=== PATIENT | male | born 1985 | race Caucasian/White ===

== ENCOUNTER 2018-05-26 08:27 | Emergency (ER) | payer SELFPAY ==
--- OUTSIDE RECORDS SUMMARY | 2018-05-26 08:29 | XMS REPORT | Clinical Summary ---
:1985 Author Organization [facility] Address [address] [place] [address] Phone Care Team Providers Name Role Phone Unavailable Primary Care Provider Unavailable Allergies No Known Allergies Current Medications No known medications Active Problems Not on file Social History Tobacco Use Types Packs/Day Years Used Date Current Every Day Smoker 0.5 Alcohol Use Drinks/Week oz/Week Comments Yes 15 Cans of beer 9.0 Sex Assigned at Date Recorded Not on file Last Filed Vital Signs Not on file Plan of Treatment Not on file Results Not on fileafter 05/25/2017
[2018-05-26] MEDS ORDERED: FLUORESCEIN SODIUM 0.6 MG/WRAP ONE (09:11)
[2018-05-26] MEDS ORDERED: TETRACAINE HCL 0.5% 2ML OPTH ONE (09:11)
[2018-05-26] MEDS ORDERED: TOBRAMYCIN SULF 0.3% OPTH OINT ONE (09:11)
--- NOTE | 2018-05-26 09:29 | EDPHYS ---
Physician Documentation [facility] Name: Lucio Lerma Jr Age: 32 yrs Sex: Male : 1985 Arrival Date: 05/26/2018 Time: 08:29 Bed 16 Private MD: None, None ED Physician Dennis Ramsey HPI: 05/26 08:50 This 32 yrs old Male presents to ER via Ambulatory with complaints of Eye cp Problem. 08:50 The patient is experiencing decreased vision, foreign body sensation, pain, redness, to cp the right eye. Onset: The symptoms/episode began/occurred today. Duration: the symptoms are continuous. Associated signs and symptoms: Pertinent negatives: None. Patient does not utilize any form of vision correction. Severity of symptoms: in the emergency department the symptoms are unchanged despite home interventions. Historical: - Allergies: 08:41 No Known Allergies; ss - Home Meds: 08:41 None [Active]; ss - PMHx: 08:41 None; ss - PSHx: 08:41 None; ss - Immunization history:: Adult Immunizations unknown. - Social history:: Smoking status: Patient/guardian denies using tobacco. - Ebola Screening: : Patient denies exposure to infectious person Patient denies travel to an Ebola-affected area in the 21 days before illness onset. ROS: 08:52 Constitutional: Negative for body aches, chills, fever, poor PO intake. cp 08:52 Eyes: Positive for discharge, foreign body sensation, pain, redness, of the right eye. cp 08:52 ENT: Negative for drainage from ear(s), ear pain, sore throat, difficulty swallowing, difficulty handling secretions. 08:52 Cardiovascular: Negative for chest pain, palpitations. 08:52 Respiratory: Negative for cough, shortness of breath, wheezing. 08:52 Abdomen/GI: Negative for abdominal pain, nausea, vomiting, and diarrhea. 08:52 : Negative for urinary symptoms. 08:52 Skin: Negative for cellulitis, rash. 08:52 Neuro: Negative for altered mental status, headache, weakness. 08:52 All other systems are negative. Exam: 08:55 Visual Acuity: I have reviewed the nursing documentation. cp 08:55 Head/Face: Normocephalic, atraumatic. cp 08:55 Constitutional: The patient appears in no acute distress, alert, awake, non-toxic, well developed, well nourished, uncomfortable. 08:55 Eyes: Periorbital structures: appear normal, Pupils: equal, round, and reactive to light and accomodation, Extraocular movements: intact throughout, Conjunctiva: injected, in the right eye, Corneas: abrasion, that is large, on the right, central, foreign body, is not appreciated, a fluorescein strip employed to appreciate the findings, Anterior chamber: normal, no hyphema, Lids and lashes: appear normal, bilaterally, Examination of the other eye reveals no obvious gross abnormality. 08:55 ENT: External ear(s): are unremarkable, Ear canal(s): are normal, clear, TM's: are normal, no evidence of bulging, no erythema, Nose: is normal, Mouth: Lips: moist, Oral mucosa: pink and intact, moist, Posterior pharynx: is normal, airway is patent, no erythema, no exudate, Voice: is normal. 08:55 Neck: ROM/movement: is normal, is supple, without pain, no range of motions limitations, no nuchal rigidity, Lymph nodes: no appreciated lymphadenopathy. 08:55 Chest/axilla: Inspection: normal, Palpation: is normal, no crepitus, no tenderness. 08:55 Cardiovascular: Rate: normal, Rhythm: regular. 08:55 Respiratory: the patient does not display signs of respiratory distress, Respirations: normal, no use of accessory muscles, no retractions, no splinting, no tachypnea, labored breathing, is not present, Breath sounds: are clear throughout, no decreased breath sounds, no stridor, no wheezing. 08:55 Abdomen/GI: Exam negative for discomfort, distension, guarding, Inspection: abdomen appears normal. 08:55 Skin: cellulitis, is not appreciated, no rash present. 08:55 Neuro: Orientation: to person, place \T\ time. Mentation: lucid, able to follow commands, Cerebellar function: is grossly normal, Motor: moves all fours, strength is normal, Sensation: no obvious gross deficits. Vital Signs: 08:41 BP 152 / 89; Pulse 67; Resp 16; Temp 97.7(TE); Pulse Ox 100% on R/A; Weight 113.4 kg; ss Height 6 ft. 4 in. (193.04 cm); Pain 2/10; 09:30 BP 142 / 81; Pulse 72; Resp 17; Pulse Ox 99% ; rb1 08:41 Body Mass Index 30.43 (113.40 kg, 193.04 cm) ss MDM: 08:46 Patient medically screened. cp 09:00 Differential diagnosis: Corneal abrasion of right eye. Corneal ulcer of right eye. cp Foreign body in right eye. Acute iritis of right eye. Acute glaucoma in right eye. Chemical conjunctivitis in right eye. Allergic conjunctivitis in right eye. Infectious conjunctivitis in right eye. 09:28 Data reviewed: vital signs, nurses notes, and as a result, I will discharge patient. cp 09:29 Counseling: I had a detailed discussion with the patient and/or guardian regarding: the cp historical points, exam findings, and any diagnostic results supporting the discharge/admit diagnosis, lab results, the need for outpatient follow up, an opthalmologist, to return to the emergency department if symptoms worsen or persist or if there are any questions or concerns that arise at home. 05/26 09:00 Order name: Visual Acuity; Complete Time: 09:34 cp 05/26 09:00 Order name: Eye Tray; Complete Time: 09:34 cp 05/26 09:00 Order name: Fluoresene Opth strip; Complete Time: 09:05 cp Administered Medications: 09:27 Not Given (Physician Discretion): ToBREx Drops (0.3 %) 2 drops Ophthalmic once cp 09:30 Drug: Gentamicin Drops 0.3 % 2 drops Route: Ophthalmic; Site: right eye; rb1 09:35 Follow up: Response: No adverse reaction; Medication administered at discharge. rb1 Disposition: 10:00 Chart complete. cp Disposition: 05/26/18 09:29 Discharged to Home. Impression: Injury of conjunctiva and corneal abrasion without foreign body, left eye. - Condition is Stable. - Discharge Instructions: Corneal Abrasion. - Prescriptions for Gentamicin 0.3 % Ophthalmic Drops - instill 1 drop by OPHTHALMIC route every 4 hours for 7 days; 1 bottle. - Medication Reconciliation Form, Thank You Letter, Antibiotic Education, Prescription Opioid Use form. - Follow up: Sallie Tsai MD; When: 1 - 2 days; Reason: Recheck today's complaints. - Problem is new. - Symptoms have improved. Addendum: 05/27/2018 10:35 Co-signature as Attending Physician, Dennis Ramsey MD I agree with the assessment and k dr plan of care. Signatures: Dennis Ramsey MD MD [facility] Drea Perez, TOMASA RN ss Benjamin Webber PA PA Winsome Lopes, RN RN rb1 Corrections: (The following items were deleted from the chart) 05/26 09:38 09:29 05/26/2018 09:29 Discharged to Home. Impression: Injury of conjunctiva and rb1 corneal abrasion without foreign body, left eye. Condition is Stable. Forms are Medication Reconciliation Form, Thank You Letter, Antibiotic Education, Prescription Opioid Use. Follow up: Sallie Tsai; When: 1 - 2 days; Reason: Recheck today's complaints. Problem is new. Symptoms have improved. cp
--- NOTE | 2018-05-26 09:29 | ER ---
Nurse's Notes [facility] Name: Lucio Lerma Jr Age: 32 yrs Sex: Male : 1985 Arrival Date: 05/26/2018 Time: 08:29 Bed 16 Private MD: None, None Diagnosis: Injury of conjunctiva and corneal abrasion without foreign body, left eye Presentation: 05/26 08:38 Presenting complaint: Patient states: stye to R upper lid that began 12 hours ago. Pt ss also reports nasal congestion and drainage. Transition of care: patient was not received from another setting of care. Onset of symptoms was May 25, 2018. Risk Assessment: Do you want to hurt yourself or someone else? Patient reports no desire to harm self or others. Initial Sepsis Screen: Does the patient meet any 2 criteria? No. Patient's initial sepsis screen is negative. Does the patient have a suspected source of infection? No. Patient's initial sepsis screen is negative. Care prior to arrival: None. 08:38 Method Of Arrival: Ambulatory ss 08:38 Acuity: SVITLANA 5 ss Historical: - Allergies: 08:41 No Known Allergies; ss - Home Meds: 08:41 None [Active]; ss - PMHx: 08:41 None; ss - PSHx: 08:41 None; ss - Immunization history:: Adult Immunizations unknown. - Social history:: Smoking status: Patient/guardian denies using tobacco. - Ebola Screening: : Patient denies exposure to infectious person Patient denies travel to an Ebola-affected area in the 21 days before illness onset. Screenin:37 Abuse screen: Denies threats or abuse. Nutritional screening: No deficits noted. rb1 Tuberculosis screening: No symptoms or risk factors identified. Fall Risk None identified. Assessment: 08:37 General: Appears in no apparent distress. comfortable, Behavior is calm, cooperative, rb1 Denies fever. Pain: Complains of pain in right eye Pain currently is 4 out of 10 on a pain scale. Pain began 1 day ago. Neuro: Level of Consciousness is awake, alert, obeys commands, Oriented to person, place, time, situation. Cardiovascular: Capillary refill < 3 seconds is brisk in bilateral fingers. Respiratory: Airway is patent Respiratory effort is even, unlabored, Respiratory pattern is regular, symmetrical. GI: No signs and/or symptoms were reported involving the gastrointestinal system. : No signs and/or symptoms were reported regarding the genitourinary system. EENT: Eyes swelling in right eye. Derm: Skin is dry, Skin is normal, Skin temperature is warm. 09:30 Reassessment: Patient appears in no apparent distress at this time. No changes from rb1 previously documented assessment. Family at bedside. Vital Signs: 08:41 BP 152 / 89; Pulse 67; Resp 16; Temp 97.7(TE); Pulse Ox 100% on R/A; Weight 113.4 kg; ss Height 6 ft. 4 in. (193.04 cm); Pain 2/10; 09:30 BP 142 / 81; Pulse 72; Resp 17; Pulse Ox 99% ; rb1 08:41 Body Mass Index 30.43 (113.40 kg, 193.04 cm) ED Course: 08:29 Patient arrived in ED. sb2 08:30 None, None is Private Physician. sb2 08:37 Patient has correct armband on for positive identification. Bed in low position. Call rb1 light in reach. Side rails up X 1. Pulse ox on. NIBP on. 08:41 Triage completed. ss 08:41 Arm band placed on right wrist. ss 08:43 Winsome Mesa, TOMASA is Primary Nurse. rb1 08:43 Benjamin Webber PA is PHCP. cp 08:43 Dennis Ramsey MD is Attending Physician. cp 09:28 Sallie Tsai MD is Referral Physician. cp 09:37 No provider procedures requiring assistance completed. Patient did not have IV access rb1 during this emergency room visit. Administered Medications: 09:27 Not Given (Physician Discretion): ToBREx Drops (0.3 %) 2 drops Ophthalmic once cp 09:30 Drug: Gentamicin Drops 0.3 % 2 drops Route: Ophthalmic; Site: right eye; rb1 09:35 Follow up: Response: No adverse reaction; Medication administered at discharge. rb1 Outcome: 09:29 Discharge ordered by . cp 09:37 Discharged to home ambulatory, with family. rb1 09:37 Condition: stable 09:37 Discharge instructions given to patient, Instructed on discharge instructions, follow up and referral plans. medication usage, Demonstrated understanding of instructions, follow-up care, medications, Prescriptions given X 1. 09:38 Patient left the ED. rb1 Signatures: Drea Perez RN RN Benjamin Webber PA PA cp Barber, Rebecca, RN RN rb1 Karlie Pinon sb2
[2018-05-26] MEDS ORDERED: GENTAMICIN 0.3% OPTH DROP 5ML ONE (09:30)
== END 2018-05-26 09:38 | disposition home or self-care (01) ==
LOC: ER 08:27
DX: S05.01XA Injury of conjunctiva and corneal abrasion without foreign body, right eye, initial encounter (principal); X58.XXXA Exposure to other specified factors, initial encounter; Y93.9 Activity, unspecified; Y92.9 Unspecified place or not applicable
CPT/HCPCS: 99283

== ENCOUNTER 2018-07-10 07:48 | Emergency (ER) | payer SELFPAY ==
--- OUTSIDE RECORDS SUMMARY | 2018-07-10 07:50 | XMS REPORT | Clinical Summary ---
:1985 Author Organization [facility] Address [address] [place] [address] Phone Care Team Providers Name Role Phone [...] Not on file Results Not on fileafter 07/09/2017
--- NOTE | 2018-07-10 08:31 | ER ---
Nurse's Notes [facility] Name: Lucio Lerma Jr Age: 32 yrs Sex: Male : 1985 Arrival Date: 07/10/2018 Time: 07:46 Bed 18 Private MD: Diagnosis: Abuse of non-psychoactive substances Presentation: 07/10 07:47 Presenting complaint: EMS states: was at [place] [employer] and told dispatchers that he smoke hj synthetic marijuana yesterday around 2 pm, he wanted to be checked; A\\T\\O x 4, ambulatory, V/S stable; states, " i found a synthetic marijuana on my neighbors house and smoked it, i felt weird on my breathing" denies chest pain;, further states "i think i have STD too, do you guys give something for that?". Transition of care: patient was not received from another setting of care. Onset of symptoms was July 10, 2018. Risk Assessment: Do you want to hurt yourself or someone else? Patient reports no desire to harm self or others. Initial Sepsis Screen: Does the patient meet any 2 criteria? No. Patient's initial sepsis screen is negative. Does the patient have a suspected source of infection? No. Patient's initial sepsis screen is negative. Care prior to arrival: None. 07:47 Method Of Arrival: EMS: [facility] 07:47 Acuity: SVITLANA 4 hj Triage Assessment: 07:50 General: Appears in no apparent distress. uncomfortable, Behavior is calm, cooperative, hj appropriate for age. Pain: Denies pain. Historical: - Allergies: 07:49 No Known Allergies; hj - Home Meds: 07:49 None [Active]; hj - PMHx: 07:49 None; hj - PSHx: 07:49 None; hj - Immunization history:: Adult Immunizations up to date. - Social history:: Smoking status: Patient uses tobacco products, Patient uses street drugs, marijuana. - Ebola Screening: : Patient negative for fever greater than or equal to 101.5 degrees Fahrenheit, and additional compatible Ebola Virus Disease symptoms Patient denies exposure to infectious person Patient denies travel to an Ebola-affected area in the 21 days before illness onset. Screenin:50 Abuse screen: Denies threats or abuse. Denies injuries from another. Nutritional hj screening: No deficits noted. Tuberculosis screening: No symptoms or risk factors identified. Fall Risk None identified. Assessment: 07:49 General: Appears in no apparent distress. uncomfortable, Behavior is calm, cooperative, hj appropriate for age. Pain: Denies pain. Neuro: Level of Consciousness is awake, alert, obeys commands, Oriented to person, place, time, situation, Appropriate for age. Cardiovascular: Capillary refill < 3 seconds Patient's skin is warm and dry. Respiratory: Airway is patent Respiratory effort is even, unlabored, Respiratory pattern is regular, symmetrical. GI: No signs and/or symptoms were reported involving the gastrointestinal system. : No signs and/or symptoms were reported regarding the genitourinary system. EENT: No signs and/or symptoms were reported regarding the EENT system. Derm: No signs and/or symptoms reported regarding the dermatologic system. Musculoskeletal: No signs and/or symptoms reported regarding the musculoskeletal system. 08:41 Reassessment: Patient and/or family updated on plan of care and expected duration. Pain hj level reassessed. Patient is alert, oriented x 3, equal unlabored respirations, skin warm/dry/pink. for D/C instructions; Patient denies pain at this time. Patient states feeling better. Patient states symptoms have improved. Vital Signs: 07:50 BP 164 / 97; Pulse 99; Resp 18; Temp 99.1(O); Pulse Ox 98% on R/A; Weight 104.33 kg; hj Height 6 ft. 3 in. (190.50 cm); Pain 0/10; 08:39 BP 157 / 90; Pulse 94; Resp 18; Pulse Ox 99% on R/A; hj 07:50 Body Mass Index 28.75 (104.33 kg, 190.50 cm) ED Course: 07:46 Patient arrived in ED. hj 07:49 Triage completed. hj 07:49 Benjamin Webber PA is PHCP. cp 07:49 Minor Stovall MD is Attending Physician. cp 07:50 Arm band placed on right wrist. hj 07:50 Patient has correct armband on for positive identification. Bed in low position. Call hj light in reach. Side rails up X 1. 07:56 Lazaro Galicia, TOMASA is Primary Nurse. hj 08:44 No provider procedures requiring assistance completed. Patient did not have IV access hj during this emergency room visit. Administered Medications: No medications were administered Outcome: 08:31 Discharge ordered by MD. silva 08:44 Discharged to home ambulatory. hj 08:44 Condition: stable 08:44 Discharge instructions given to patient, Instructed on discharge instructions, follow up and referral plans. Demonstrated understanding of instructions, follow-up care. 08:45 Patient left the ED. hj Signatures: Lazaro Galicia RN RN Benjamin Barriga PA PA cp Corrections: (The following items were deleted from the chart) 07:54 07:47 Presenting complaint: EMS states: was at the [employer] and told dispatchers that he hj smoke synthetic marijuana last night around 8 pm, he wanted to be checked; A\\T\\O x 4, ambulatory, V/S stable; hj 07:55 07:50 BP 164 / 97; Pulse 99bpm; Resp 18bpm; Pulse Ox 98% RA; 104.33 kg; Height 6 ft. 3 hj in.; BMI: 28.7; Pain 0/10; hj
--- NOTE | 2018-07-10 08:31 | EDPHYS ---
Physician Documentation [facility] Name: Lucio Lerma Jr Age: 32 yrs Sex: Male : 1985 Arrival Date: 07/10/2018 Time: 07:46 Bed 18 Private MD: ED Physician Minor Stovall HPI: 07/10 08:10 This 32 yrs old Male presents to ER via EMS with complaints of smoke weed cp last night, wanted to be checked. 08:10 smoked synthetic marijuana last night. Patient reports he hadn't smoked it in awhile cp and that he felt "weird" afterward. Denies current chest pain, denies shortness of breath. Historical: - Allergies: 07:49 No Known Allergies; hj - Home Meds: 07:49 None [Active]; hj - PMHx: 07:49 None; hj - PSHx: 07:49 None; hj - Immunization history:: Adult Immunizations up to date. - Social history:: Smoking status: Patient uses tobacco products, Patient uses street drugs, marijuana. - Ebola Screening: : Patient negative for fever greater than or equal to 101.5 degrees Fahrenheit, and additional compatible Ebola Virus Disease symptoms Patient denies exposure to infectious person Patient denies travel to an Ebola-affected area in the 21 days before illness onset. ROS: 08:12 Constitutional: Negative for body aches, chills, fever, poor PO intake. cp 08:12 Eyes: Negative for injury, pain, redness, and discharge. cp 08:12 ENT: Negative for drainage from ear(s), ear pain, sore throat, difficulty swallowing, difficulty handling secretions. 08:12 Cardiovascular: Negative for chest pain, edema, palpitations. 08:12 Respiratory: Negative for cough, shortness of breath, wheezing. 08:12 Abdomen/GI: Negative for abdominal pain, nausea, vomiting, and diarrhea. 08:12 Back: Negative for pain at rest, pain with movement. 08:12 : Negative for urinary symptoms. 08:12 Skin: Negative for cellulitis, rash. 08:12 Neuro: Negative for altered mental status, headache, weakness. 08:12 All other systems are negative. Exam: 08:12 ECG was reviewed by the Attending Physician. cp 08:15 Constitutional: The patient appears in no acute distress, alert, awake, cp non-diaphoretic, non-toxic, well developed, well nourished. 08:15 Head/Face: Normocephalic, atraumatic. cp 08:15 Eyes: Periorbital structures: appear normal, Pupils: equal, round, and reactive to light and accomodation, Extraocular movements: intact throughout, Conjunctiva: normal, no exudate, no injection, Lids and lashes: appear normal, bilaterally. 08:15 ENT: External ear(s): are unremarkable, Nose: is normal, Mouth: Lips: moist, Oral mucosa: pink and intact, moist, Posterior pharynx: is normal, airway is patent, no erythema, no exudate. 08:15 Neck: ROM/movement: is normal, is supple, without pain, no range of motions limitations, no nuchal rigidity. 08:15 Chest/axilla: Inspection: normal, Palpation: is normal, no crepitus, no tenderness. 08:15 Cardiovascular: Rate: normal, Rhythm: regular, Edema: is not appreciated, JVD: is not appreciated. 08:15 Respiratory: the patient does not display signs of respiratory distress, Respirations: normal, no use of accessory muscles, no retractions, no splinting, no tachypnea, labored breathing, is not present, Breath sounds: are clear throughout, no decreased breath sounds, no stridor, no wheezing. 08:15 Abdomen/GI: Inspection: abdomen appears normal, Palpation: abdomen is soft and non-tender, in all quadrants. 08:15 Back: pain, is absent, ROM is normal. 08:15 Skin: cellulitis, is not appreciated, no rash present. 08:15 Neuro: Orientation: to person, place \\T\\ time. Mentation: lucid, able to follow commands, Cerebellar function: is grossly normal, Motor: moves all fours, strength is normal, Sensation: no obvious gross deficits, Gait: is steady, at a normal pace, without difficulty. Vital Signs: 07:50 BP 164 / 97; Pulse 99; Resp 18; Temp 99.1(O); Pulse Ox 98% on R/A; Weight 104.33 kg; hj Height 6 ft. 3 in. (190.50 cm); Pain 0/10; 08:39 BP 157 / 90; Pulse 94; Resp 18; Pulse Ox 99% on R/A; hj 07:50 Body Mass Index 28.75 (104.33 kg, 190.50 cm) MDM: 07:49 Patient medically screened. 08:00 Differential Diagnosis HTN, cardiac arrythmia, acute psychosis. cp 08:29 Data reviewed: vital signs, nurses notes, EKG, and as a result, I will discharge cp patient. 08:30 Test interpretation: by ED physician or midlevel provider: ECG. 08:30 Counseling: I had a detailed discussion with the patient and/or guardian regarding: the cp historical points, exam findings, and any diagnostic results supporting the discharge/admit diagnosis, the presence of at least one elevated blood pressure reading (>120/80) during this emergency department visit, to return to the emergency department if symptoms worsen or persist or if there are any questions or concerns that arise at home. ED course: VSS. Patient with no complaints. Will discharge to home for continued monitoring. 07/10 07:55 Order name: EKG; Complete Time: 07:56 07/10 07:55 Order name: EKG - Nurse/Tech; Complete Time: 07:56 EC:12 Rate is 89 beats/min. Rhythm is regular. GA interval is normal. QRS interval is normal. cp QT interval is normal. Interpreted by me. Reviewed by me. Administered Medications: No medications were administered Disposition: 18:21 Co-signature as Attending Physician, Minor Stovall MD. ma2 Disposition: 07/10/18 08:31 Discharged to Home. Impression: Abuse of non-psychoactive substances. - Condition is Stable. - Discharge Instructions: Finding Treatment for Addiction. - Medication Reconciliation Form, Thank You Letter, Antibiotic Education, Prescription Opioid Use form. - Follow up: Emergency Department; When: As needed; Reason: Worsening of condition. - Problem is new. - Symptoms have improved. Signatures: Lazaro Galicia RN RN hj Page, Corey, PA PA cp Alzahri, Mohammad, MD MD ma2 Corrections: (The following items were deleted from the chart) 08:45 08:31 07/10/2018 08:31 Discharged to Home. Impression: Abuse of non-psychoactive hj substances. Condition is Stable. Forms are Medication Reconciliation Form, Thank You Letter, Antibiotic Education, Prescription Opioid Use. Follow up: Emergency Department; When: As needed; Reason: Worsening of condition. Problem is new. Symptoms have improved. cp
--- NOTE | 2018-07-11 06:53 | EKG ---
Test Date: 2018-07-10 Test Time: 08:01:23 Route Rider Supervisor: KAMILLA MEASUREMENT RESULTS: Intervals: Rate: 88 [place]: 148 QRSD: 88 QT: 378 QTc: 457 [place]: P: 65 [place]: 148 QRS: 58 T: 60 INTERPRETIVE STATEMENTS: Poor data quality, interpretation may be adversely affected Normal sinus rhythm Normal ECG Compared to ECG 12/07/2013 21:51:28 Sinus tachycardia no longer present Electronically Signed On 07-11-18 06:51:14 CDT by Mason Woo
--- NOTE | 2018-07-11 19:28 | EKG ---
Test Date: 2018-07-10 Test Time: 08:02:16 [employer] Consultant: KAMILLA MEASUREMENT RESULTS: Intervals: Rate: 89 ND: 152 QRSD: 88 QT: 388 QTc: 472 [place]: P: 69 ND: 152 QRS: 61 T: 60 INTERPRETIVE STATEMENTS: Normal sinus rhythm Cannot rule out Anterior infarct, age undetermined Abnormal ECG Compared to ECG 07/10/2018 08:01:23 Myocardial infarct finding now present Electronically Signed On 07-11-18 19:24:38 CDT by Mason Woo
== END 2018-07-10 08:45 | disposition home or self-care (01) ==
LOC: ER 07:48
DX: F12.10 Cannabis abuse, uncomplicated (principal)
CPT/HCPCS: 93005; 99283

== ENCOUNTER 2020-08-15 07:31 | Emergency (ER) | payer SELFPAY ==
--- OUTSIDE RECORDS SUMMARY | 2020-08-15 07:34 | XMS REPORT | Clinical Summary ---
:1985 Author Organization [facility] Address [address] [place] [address] Care Team Providers Name Role Phone Sharpless Primary Care Provider Allergies No Known Allergies Medications No known medications Active Problems Not on file Social History Tobacco Use Types Packs/Day Years Used Date Current Every Day Smoker 0.5 Alcohol Use Drinks/Week oz/Week Comments Yes 15 Cans of beer 15.0 Sex Assigned at Date Recorded Not on file Last Filed Vital Signs Not on file Plan of Treatment Not on file Results Not on fileafter 08/15/2019
--- OUTSIDE RECORDS SUMMARY | 2020-08-15 07:34 | XMS REPORT | Continuity of Care Document ---
:1985 Author Organization [facility] t Address [address] [place] [id number] Care Team Providers Name Role Phone Sharpless Primary Care Physician Problems This patient has no known problems. Allergies, Adverse Reactions, Alerts This patient has no known allergies or adverse reactions. Social History Social Habit Start Date Stop Date Quantity Comments Source Sex Assigned At [facility] Cigarettes smoked 2016-02-24 2016-02-24 [facility] - current (pack per 00:00:00 00:00:00 Medical Center day) - Reported Alcohol intake 2016-02-24 2016-02-24 Current drinker [facility] - 00:00:00 00:00:00 of [facility] (finding) Smoking Status Start Date Stop Date Source Current every day smoker 2016-02-24 00:00:00 [facility] Medications This patient has no known medications. Procedures This patient has no known procedures. Results This patient has no known results.
[2020-08-15] MEDS ORDERED: WATER FOR INJ,STERILE 10 ML ONE (08:07)
[2020-08-15] MEDS ORDERED: ZIPRASIDONE MESYLA 20 MG/VIAL IM ONE (08:07)
[2020-08-15 08:27] LABS: Absolute Lymphocytes (CBC) 2.3 K/uL (0.7-4.9); Basophils % 1.2 % (0-1.3); Hematocrit 44.4 % (39.6-49.0); Lymphocytes % 27.8 % (15.3-44.8); MPV 9.2 fL (7.6-11.3); RBC Red Blood Cell Count 4.89 M/uL (4.33-5.43)
[2020-08-15 08:29] LABS: Protime INR 0.92
[2020-08-15 08:57] LABS: ALT/SGPT 18 U/L (12-78); AST/SGOT 16 U/L (15-37); Albumin 3.9 g/dL (3.4-5.0); Alkaline Phosphatase 67 U/L (45-117); BUN Blood Urea Nitrogen 14 mg/dL (7-18); Bicarbonate 24 mmol/L (21-32); Bilirubin Direct 0.1 mg/dL (0-0.2); Bilirubin Total 0.3 mg/dL (0.2-1.0); Glucose Level 100 mg/dL (74-106); Protein, Total 7.4 g/dL (6.4-8.2); Sodium Level 141 mmol/L (136-145)
[2020-08-15 09:08] LABS: Urine Blood NEGATIVE (NEG); Urine Glucose NEGATIVE (NEG); Urine Protein TRACE (NEG); Urine Specific Gravity >1.030 (1.005-1.030); Urine pH 5.5 (5.0-7.0)
[2020-08-15 09:30] LABS: Barbiturates NEGATIVE (NEGATIVE); Benzodiazepines NEGATIVE (NEGATIVE); Cocaine NEGATIVE (NEGATIVE); METHAMPHETAM NEGATIVE (NEGATIVE); Methadone NEGATIVE (NEGATIVE); Opiates NEGATIVE (NEGATIVE); Phencyclidine NEGATIVE (NEGATIVE); THC Cannibis POSITIVE (NEGATIVE)
--- NOTE | 2020-08-15 09:37 | EDPHYS ---
Physician Documentation [facility] Name: Lucio Lerma Jr Age: 34 yrs Sex: Male : 1985 Arrival Date: 08/15/2020 Time: 07:35 Bed 7 Private MD: ED Physician Dennis Ramsey HPI: 08/15 09:36 This 34 yrs old Male presents to ER via Ambulatory with complaints of Doesn't kdr Feel Right, Abdominal Pain, Psych Problem. 09:36 The patient presents to the emergency department with anxiety, paranoia, psychosis. kdr Onset: The symptoms/episode began/occurred at an unknown time. Past psychiatric history: Prior diagnosis: bipolar disorder, schizophrenia, Psychiatric medications include:. Associated signs and symptoms: The patient has no apparent associated signs or symptoms. Severity of symptoms: At their worst the symptoms were moderate in the emergency department the symptoms are unchanged. The patient has experienced similar episodes in the past, chronically. The patient has not recently seen a physician. Historical: - Allergies: 07:40 No Known Allergies; aa5 - Home Meds: 07:40 Prazosin Oral for for anxiety [Active]; divalproex oral oral [Active]; aa5 - PMHx: 07:40 Seizures (drug induced); Anxiety; Bipolar disorder; Drug Abuse; aa5 - Immunization history:: Adult Immunizations unknown. - Social history:: Smoking status: Patient denies any tobacco usage or history of. Patient uses street drugs, marijuana, Pt states "I've done all kinds of drugs but I quit" . ROS: 09:36 Constitutional: Negative for fever, chills, and weight loss, Eyes: Negative for injury, kdr pain, redness, and discharge, ENT: Negative for injury, pain, and discharge, Neck: Negative for injury, pain, and swelling, Cardiovascular: Negative for chest pain, palpitations, and edema, Respiratory: Negative for shortness of breath, cough, wheezing, and pleuritic chest pain, Abdomen/GI: Negative for abdominal pain, nausea, vomiting, diarrhea, and constipation, Back: Negative for injury and pain, : Negative for injury, bleeding, discharge, and swelling, MS/Extremity: Negative for injury and deformity, Skin: Negative for injury, rash, and discoloration, Neuro: Negative for headache, weakness, numbness, tingling, and seizure activity. Allergy/Immunology: Negative for hives, rash, and allergies, Endocrine: Negative for neck swelling, polydipsia, polyuria, polyphagia, and marked weight changes, Hematologic/Lymphatic: Negative for swollen nodes, abnormal bleeding, and unusual bruising. 09:36 Psych: Positive for anxiety, auditory hallucinations, Negative for drug dependence, alcohol dependence, homicidal ideation, suicide gesture, suicidal ideation. Exam: 09:36 Constitutional: This is a well developed, well nourished patient who is awake, alert, kdr and in no acute distress. Head/Face: Normocephalic, atraumatic. Eyes: Pupils equal round and reactive to light, extra-ocular motions intact. Lids and lashes normal. Conjunctiva and sclera are non-icteric and not injected. Cornea within normal limits. Periorbital areas with no swelling, redness, or edema. Neck: Trachea midline, no thyromegaly or masses palpated, and no cervical lymphadenopathy. Supple, full range of motion without nuchal rigidity, or vertebral point tenderness. No Meningismus. Chest/axilla: Normal chest wall appearance and motion. Nontender with no deformity. No lesions are appreciated. Cardiovascular: Regular rate and rhythm with a normal S1 and S2. No gallops, murmurs, or rubs. Normal PMI, no JVD. No pulse deficits. Respiratory: Lungs have equal breath sounds bilaterally, clear to auscultation and percussion. No rales, rhonchi or wheezes noted. No increased work of breathing, no retractions or nasal flaring. Abdomen/GI: Soft, non-tender, with normal bowel sounds. No distension or tympany. No guarding or rebound. No evidence of tenderness throughout. Back: No spinal tenderness. No costovertebral tenderness. Full range of motion. Skin: Warm, dry with normal turgor. Normal color with no rashes, no lesions, and no evidence of cellulitis. MS/ Extremity: Pulses equal, no cyanosis. Neurovascular intact. Full, normal range of motion. Neuro: Awake and alert, GCS 15, oriented to person, place, time, and situation. Cranial nerves II-XII grossly intact. Motor strength 5/5 in all extremities. Sensory grossly intact. Cerebellar exam normal. Normal gait. 09:36 Psych: Behavior/mood is cooperative, anxious, inappropriate for age, Affect is flat, animated, Oriented to person, place, time, Patient has no thoughts/intents to harm self or others. Judgement / Insight is impaired. Memory is normal. Delusions/hallucinations are present and described as auditory - hearing voices and paranoid that people are after him and talking about him. Vital Signs: 07:40 BP 145 / 113; Pulse 109; Resp 26 S; Temp 98.7(TE); Pulse Ox 100% on R/A; aa5 08:49 BP 143 / 93; Pulse 84; Resp 16; Pulse Ox 100% on R/A; Pain 0/10; iw MDM: 09:36 Patient medically screened. kdr 09:36 Data reviewed: vital signs, nurses notes, lab test result(s). Counseling: I had a kdr detailed discussion with the patient and/or guardian regarding: the historical points, exam findings, and any diagnostic results supporting the discharge/admit diagnosis, lab results, to return to the emergency department if symptoms worsen or persist or if there are any questions or concerns that arise at home. 08/15 07:51 Order name: Acetaminophen [facility] 08/15 07:51 Order name: Basic Metabolic Panel [facility] 08/15 07:51 Order name: CBC with Diff [facility] 08/15 07:51 Order name: ETOH Level [facility] 08/15 07:51 Order name: Hepatic Function [facility] 08/15 07:51 Order name: PT-INR [facility] 08/15 07:51 Order name: Ptt, Activated [facility] 08/15 07:51 Order name: Salicylate [facility] 08/15 07:51 Order name: Urine Drug Screen [facility] 08/15 07:51 Order name: EKG; Complete Time: 07:52 kdr 08/15 07:51 Order name: EKG - Nurse/Tech; Complete Time: 08:43 kdr 08/15 08:20 Order name: Urine Dipstick--Ancillary (enter results) em1 08/15 08:20 Order name: Urine Dipstick-Ancillary [facility] 08/15 07:51 Order name: IV Saline Lock; Complete Time: 08:43 kdr 08/15 07:51 Order name: Labs collected and sent; Complete Time: 08:43 kdr 08/15 07:51 Order name: Urine Dipstick-Ancillary (obtain specimen); Complete Time: 08:19 kdr Administered Medications: 08:00 Drug: Geodon 20 mg Route: IM; Site: left deltoid; iw Disposition: 08/15/20 09:36 Patient left the facility after being seen by provider. Preliminary diagnosis is Paranoid schizophrenia. - Patient left due to (see nurse's notes). - Condition is Fair. Signatures: Dispatcher [employer] EDMS Dennis Ramsey MD MD kdr Pat Lerma RN RN iw Enedina Kincaid RN RN aa5 Corrections: (The following items were deleted from the chart) 09:37 09:36 08/15/2020 09:36 Patient left the facility after being seen by provider. iw Preliminary diagnosis is Paranoid schizophrenia. Reason stated they are leaving due to (see nurse's notes). Condition is Fair. kdr
--- NOTE | 2020-08-15 09:37 | ER ---
Nurse's Notes [facility] Name: Lucio Lerma Jr Age: 34 yrs Sex: Male : 1985 Arrival Date: 08/15/2020 Time: 07:35 Bed 7 Private MD: Diagnosis: Paranoid schizophrenia Presentation: 08/15 07:39 Chief complaint: Patient states: "I've been having a stomach ache for a while and I aa5 want my medicines checked but not by [facility]". Pt reports auditory hallucinations. Pt denies suicidal ideations, denies homicidal ideations. Pt states "I would never hurt anybody, if anything I am scared for my own life because I hear voices telling me somebody is going to kill me and I am very antisocial". Pt's mother states "he missed two appointments with [facility] and now they won't refill his medicines until they evaluate him again and the earliest they can see him is on the ". 07:39 Coronavirus screen: Client denies travel out of the [place] in the last 14 days. At this aa5 time, the client does not indicate any symptoms associated with coronavirus-19. Ebola Screen: Patient negative for fever greater than or equal to 101.5 degrees Fahrenheit, and additional compatible Ebola Virus Disease symptoms. Initial Sepsis Screen: Does the patient meet any 2 criteria? HR > 90 bpm. Does the patient have a suspected source of infection? No. Patient's initial sepsis screen is negative. Risk Assessment: Do you want to hurt yourself or someone else? Patient reports no desire to harm self or others. Onset of symptoms was August 15, 2020. 07:39 Acuity: SVITLANA 3 aa5 07:39 Method Of Arrival: Ambulatory aa5 Historical: - Allergies: 07:40 No Known Allergies; aa5 - Home Meds: 07:40 Prazosin Oral for for anxiety [Active]; divalproex oral oral [Active]; aa5 - PMHx: 07:40 Seizures (drug induced); Anxiety; Bipolar disorder; Drug Abuse; aa5 - Immunization history:: Adult Immunizations unknown. - Social history:: Smoking status: Patient denies any tobacco usage or history of. Patient uses street drugs, marijuana, Pt states "I've done all kinds of drugs but I quit" . Screenin:11 Abuse screen: Denies injuries from another. Nutritional screening: No deficits noted. iw Tuberculosis screening: No symptoms or risk factors identified. Fall Risk IV access (20 points). Assessment: 07:45 General: Appears in no apparent distress. Behavior is anxious. Pain: Denies pain. iw Neuro: Level of Consciousness is awake, alert, obeys commands, Oriented to person, place, time, situation. Cardiovascular: Patient's skin is warm and dry. Respiratory: Respiratory effort is even, unlabored, Respiratory pattern is regular, symmetrical. GI: Bowel sounds present X 4 quads. Abd is soft and non tender X 4 quads. Derm: Skin is intact, is healthy with good turgor. Musculoskeletal: Range of motion: intact in all extremities. 08:49 Reassessment: Patient appears in no apparent distress at this time. pt states he is iw feeling more calm, advised pt that we are waiting to hear back from [facility], pt stated he wants to leave, mother encouraged pt to stay and wait to speak with [facility] so he can get back on his meds, ot agrees at this time. 09:29 Reassessment: pt is agitated, talking loudly, cursing that he wants to leave, does not iw want to wait any longer for [facility] , pt is paranoid, states he is a grown man, pt states he wants his IV removed, pt denies SI, pt keeps repeating that he is a grown man and just wants to leave. 09:30 Reassessment: Dr. Ramsey at bedside speaking to pt and family, pt states he wants to iw leave and he will keep his [facility] appt on the 28. Vital Signs: 07:40 BP 145 / 113; Pulse 109; Resp 26 S; Temp 98.7(TE); Pulse Ox 100% on R/A; aa5 08:49 BP 143 / 93; Pulse 84; Resp 16; Pulse Ox 100% on R/A; Pain 0/10; iw ED Course: 07:35 Patient arrived in ED. ag5 07:39 Arm band placed on. aa5 07:41 Dennis Ramsey MD is Attending Physician. kdr 07:46 Pat Lerma, RN is Primary Nurse. iw 07:58 Triage completed. aa5 08:11 Initial lab(s) drawn, by me, sent to lab. Inserted saline lock: 20 gauge in left iw antecubital area, using aseptic technique. Blood collected. 08:43 Patient has correct armband on for positive identification. Placed in gown. Bed in low jl7 position. Call light in reach. Side rails up X 1. Pulse ox on. NIBP on. 08:43 Urine Dipstick--Ancillary (enter results) Sent. aa5 08:44 EKG done, by ED staff, reviewed by Dennis Ramsey MD. jl7 09:29 [facility] Crisis Line called to arrange a meeting with the mental health screener. em1 Administered Medications: 08:00 Drug: Geodon 20 mg Route: IM; Site: left deltoid; iw Outcome: 09:36 Eloped from patient exam room. iw 09:36 Condition: unchanged 09:36 Instructed on follow up and referral plans. 09:37 Patient left the ED. iw Signatures: Dennis Ramsey MD MD [facility] Pat Lerma RN RN iw Mendoza Phillip em1 Enedina Kincaid, RN RN aa5 Sb Venegas RN RN jl7 Raymond Guillory 5
[2020-08-15 09:51] VITALS: TEMP 98.7; O2SAT 100
[2020-08-15 09:53] VITALS: BP 143/93
--- NOTE | 2020-08-17 09:36 | EKG ---
Test Date: 2020-08-15 Test Time: 08:38:30 [employer]head Stock Clerk: TIARRA MEASUREMENT RESULTS: Intervals: Rate: 84 NC: 154 QRSD: 92 QT: 382 QTc: 451 Heth: P: 56 NC: 154 QRS: 55 T: 56 INTERPRETIVE STATEMENTS: Normal sinus rhythm Normal ECG Compared to ECG 07/10/2018 08:02:16 Myocardial infarct finding no longer present Electronically Signed On 08-17-20 09:31:30 CDT by Mason Woo
== END 2020-08-15 09:37 | disposition left against medical advice (07) ==
LOC: ER 07:31
DX: F20.0 Paranoid schizophrenia (principal)
CPT/HCPCS: 36415; 80048; 80076; 80307; 80320; 80329; 81003; 85025; 85610; 85730; 93005; 96372; 99284; J3486

== ENCOUNTER 2021-01-21 20:17 | Emergency (ER) | payer SELFPAY ==
--- NOTE | 2021-01-21 23:25 | ER ---
Nurse's Notes [facility] Name: Lucio Lerma Jr Age: 35 yrs Sex: Male : 1985 Arrival Date: 01/21/2021 Time: 20:22 Bed 4 Private MD: Diagnosis: Left lower leg edema Presentation: 01/21 20:27 Chief complaint: Patient states: B foot pain and swelling for 2 months, worse for 2 ll1 days in the L foot. R foot has gone down for 1 week. Coronavirus screen: Client denies travel out of the [place] in the last 14 days. At this time, the client does not indicate any symptoms associated with coronavirus-19. Ebola Screen: Patient denies travel to an Ebola-affected area in the 21 days before illness onset. Initial Sepsis Screen: Does the patient meet any 2 criteria? No. Patient's initial sepsis screen is negative. Does the patient have a suspected source of infection? Yes: Skin breakdown/wound. Risk Assessment: Do you want to hurt yourself or someone else? Patient reports no desire to harm self or others. Onset of symptoms was November 23, 2020. 20:27 Method Of Arrival: Wheelchair ll1 20:27 Acuity: SVITLANA 3 ll1 Historical: - Allergies: 20:31 No Known Drug Allergies; ll1 - PMHx: 20:31 Anxiety; Bipolar disorder; drug abuse; Seizures (drug induced); ll1 - PSHx: 20:31 None; ll1 - Immunization history:: Flu vaccine is not up to date. - Social history:: Smoking status: Patient reports the use of cigarette tobacco products, denies chronic smoking, but will smoke occasionally. - Family history:: not pertinent. - Hospitalizations: : No recent hospitalization is reported. Screenin:25 Abuse screen: Denies threats or abuse. Nutritional screening: No deficits noted. ea Tuberculosis screening: No symptoms or risk factors identified. Fall Risk None identified. Assessment: 21:29 General: Appears in no apparent distress. Behavior is calm, cooperative, appropriate ea for age. Pain: Denies pain. Neuro: Level of Consciousness is awake, alert, obeys commands, Oriented to person, place, time, situation. Cardiovascular: Patient's skin is warm and dry. Respiratory: Airway is patent Respiratory effort is even, unlabored, Respiratory pattern is regular, symmetrical. Derm: pitting edema noted to right foot. Vital Signs: 20:27 BP 129 / 79; Pulse 73; Resp 18; Temp 98.6; Pulse Ox 96% ; Weight 138.8 kg; Height 6 ft. ll1 4 in. (193.04 cm); Pain 6/10; 23:40 BP 124 / 70; Pulse 72; Resp 18; Pulse Ox 98% on R/A; sg 20:27 Body Mass Index 37.25 (138.80 kg, 193.04 cm) ll1 ED Course: 20:22 Patient arrived in ED. ag3 20:30 Triage completed. ll1 20:32 Arm band placed on. ll1 21:10 Poncho Land MD is Attending Physician. rn 21:25 Misty Mooney, TOMASA is Primary Nurse. ea 21:25 Patient has correct armband on for positive identification. Bed in low position. Call ea light in reach. Side rails up X2. 21:50 Extremity Venous Uni Ltd US In Process Unspecified. EDMS 21:55 XRAY Foot LEFT 3 View In Process Unspecified. EDMS 21:55 XRAY Tib Fib LEFT In Process Unspecified. EDMS 23:40 No provider procedures requiring assistance completed. Patient did not have IV access sg during this emergency room visit. Administered Medications: No medications were administered Outcome: 23:25 Discharge ordered by . rn 23:40 Discharged to home via wheelchair. sg 23:40 Condition: good 23:40 Discharge instructions given to patient, Instructed on discharge instructions, follow up and referral plans. medication usage, safety practices, wound care, Demonstrated understanding of instructions, follow-up care, medications, Prescriptions given X 1. 23:46 Patient left the ED. sg Signatures: Dispatcher [employer] EDMS Andres Mccord RN RN sg Nieto, Roman, MD MD rn Antunez, Elena, RN RN ea Gomez, Alice 3 Barb Sommers RN RN 1
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
[2021-01-22 00:47] VITALS: BP 129/79; TEMP 98.6; O2SAT 96
--- NOTE | 2021-01-22 09:04 | RAD REPORT ---
EXAM DESCRIPTION: US - Extremity Venous Uni Ltd - 01/21/2021 9:50 pm CLINICAL HISTORY: Pain;Swelling Leg swelling and edema. COMPARISON: No comparisons FINDINGS: Left lower extremity venous system was interrogated with Doppler technique. Normal flow, c ompressibility and augmentation was noted. There is no DVT present. IMPRESSION: No evidence of left lower extremity deep venous thrombosis.
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
== END 2021-01-21 23:46 | disposition home or self-care (01) ==
LOC: ER 20:17
DX: R60.0 Localized edema (principal); F17.210 Nicotine dependence, cigarettes, uncomplicated
CPT/HCPCS: 93971; 99283

== ENCOUNTER 2023-04-03 07:35 | Emergency (ER) | payer SELFPAY ==
--- OUTSIDE RECORDS SUMMARY | 2023-04-03 07:39 | XMS REPORT | Continuity of Care Document ---
:1985 Author Organization [facility] t Address [address] [place] [address]. [address] [place] [address] Care Team Providers Name Role Phone Sharpless Primary Care Physician Garfield Medina DO Attending Clinician Jeanne Serrano LMSW Attending Clinician Brandt Ayoub MD Attending Clinician Payers Payer Name Policy Type Policy Number Effective Date Expiration Date S brigid [employer] [id number] 2018 CARE 00:00:00 Problems Condition Condition Condition Status Onset Resolution Last Treating Co mments Source Name Details Category Date Date Treatment Clinician Date Anxiety Anxiety Disease Active Univers and and 12-22 [place] [facility] Allergies, Adverse Reactions, Alerts Allergy Allergy Status Severity Reaction(s) Onset Inactive Treating Comm ents Source Name Type Date Date Clinician NO KNOWN Drug Active Univers ALLERGIE Class ity of S [facility] Social History Social Habit Start Date Stop Date Quantity Comments Source History of tobacco 2003-12-22 Cigarette Smoker University of use 00:00:00 [facility] Exposure to Not sure University of SARS-CoV-2 (event) [facility] Tobacco use and 2018-12-22 2018-12-22 Never used Universit y of exposure 00:00:00 00:00:00 [facility] Alcohol Comment 2018-12-22 2018-12-22 6 packs of beer Univ ersity of 00:00:00 00:00:00 daily since 18 [facility] yrs of age Branch Cigarettes smoked 2016-02-24 2016-02-24 FELI Munson current (pack per 00:00:00 00:00:00 [facility] day) - Reported Alcohol intake 2016-02-24 2016-02-24 Current drinker FELI Lorenzana 00:00:00 00:00:00 of alcohol [facility] (finding) Sex Ass[birth year] At [birth year] FELI Michelles 00:00:00 [facility]:00 [facility] Smoking Status Start Date Stop Date Source Current every day smoker 2018-12-22 00:00:00 Uni versity of [facility] Branch Medications Ordered Filled Start Stop Current Ordering Indication Dosage Frequency Signature Comments Components Source Medication Medication Date Date Medication? Clinician (SIG) Name Name diphenhydrA 2019-10 2020- No 25mg 25 mg, Uni vers MINE 0-25 10-25 Intramuscu ity of (BENADRYL) 20:45: 19:38 lar, ONCE, [place] injection 00 :00 1 dose, Medical 25 mg [facility] 08/18/20 at 1545, STAT haloperidol 2019-10 2020- No 5mg 5 mg, Univ ers lactate 0-25 10-25 Intramuscu ity o f (HALDOL) 20:45: 19:38 [place] 5 00 :00 1 dose, Medic al mg [facility] 08/18/20 at 1545, MEREDITH diphenhydrA 2019-10 2020- No 25mg 25 mg, Uni vers MINE 0-25 10-25 Intramuscu ity of (BENADRYL) 20:45: 19:38 lar, ONCE, [place] injection 00 :00 1 dose, Medical 25 mg [facility] 08/18/20 at 1545, STAT haloperidol 2019-10 2020- No 5mg 5 mg, Univ ers lactate 0-25 10-25 Intramuscu ity o f (HALDOL) 20:45: 19:38 [place] 5 00 :00 1 dose, Medic al mg [facility] 08/18/20 at 1545, MEREDITH LORazepam 2019-10 2020- No 2mg 2 mg, Univer s (ATIVAN) 0-25 10-25 Oral, ity of tablet 2 mg 18:30: 17:18 [place]CE[place] dose, [facility] 08/18/20 Branch at 1330, MEREDITH LORazepam 2019-10 2020- No 2mg 2 mg, Univer s (ATIVAN) 0-25 10-25 Oral, ity of tablet 2 mg 18:30: 17:18 [place]CE[place] 00 [place] dose, [facility] 08/18/20 Branch at 1330, MEREDITH docusate Yes [id number] 100mg Take 1 U nivers (COLACE) 2-28 capsule by ity o f 100 mg 00:00: mouth [place] capsule 00 daily. Medical Branch docusate Yes [id number] 100mg Take 1 U nivers (COLACE) 2-28 capsule by ity o f 100 mg 00:00: mouth [place] capsule 00 daily. [facility] docusate Yes [id number] 100mg Take 1 U nivers (COLACE) 2-28 capsule by ity o f 100 mg 00:00: mouth [place] capsule 00 daily. Medical Branch docusate Yes [id number] 100mg Take 1 U nivers (COLACE) 2-28 capsule by ity o f 100 mg 00:00: mouth [place] capsule 00 daily. [facility] Vital Signs Vital Name Observation Time Observation Value Comments Source Respiratory rate 2021-01-15 11:35:44 18 /min [facility] BMI 2021-01-15 11:28:00 27.50 kg/m2 [facility] Oxygen saturation in 2021-01-15 11:28:00 99 /min [facility] Arterial blood by [facility] Pulse oximetry Branch Systolic blood 2021-01-15 11:28:00 167 mm[Hg] Univer sity pressure [facility] Diastolic blood 2021-01-15 11:28:00 96 mm[Hg] [facility] Heart rate 2021-01-15 11:28:00 100 /min [facility] Body temperature 2021-01-15 11:28:00 36.28 Viviane [facility] Body weight 2021-01-15 11:28:00 99.791 kg [facility] Systolic blood 2020-08-18 22:25:00 128 mm[Hg] Univer sity of pressure [facility] Diastolic blood 2020-08-18 22:25:00 78 mm[Hg] Unive rsity of pressure [facility] Heart rate 2020-08-18 22:25:00 64 /min [facility] Respiratory rate 2020-08-18 22:25:00 18 /min [facility] Oxygen saturation in 2020-08-18 22:25:00 98 /min [facility] Arterial blood by [facility] Pulse oximetry Branch Systolic blood 2020-08-18 18:47:00 142 mm[Hg] Univer sity of pressure [facility] Diastolic blood 2020-08-18 18:47:00 80 mm[Hg] Unive rsity of [facility] Heart rate 2020-08-18 18:47:00 64 /min [facility] Respiratory rate 2020-08-18 18:47:00 18 /min [facility] Oxygen saturation in 2020-08-18 18:47:00 98 /min [facility] Arterial blood by [facility] Pulse oximetry Branch Body temperature 2020-08-18 16:20:00 36.28 Viviane [facility] Body weight 2020-08-18 14:46:00 100 kg [facility] BMI 2020-08-18 14:46:00 27.56 kg/m2 [facility] Procedures Procedure Date / Time Performed Performing Clinician Sourkymberly e COMP. METABOLIC PANEL 2020-08-18 15:18:00 Brandt Ayoub [facility] ([id number]) [facility] SALICYLATE 2020-08-18 15:18:00 Brandt Ayoub [facility] ETHANOL 2020-08-18 15:18:00 Brandt Ayoub [facility] GALV/CLC ONLY - URINE 2020-08-18 15:18:00 Brandt Ayoub [facility] DRUG (IMMUNOASSAY) - 4 Medical [place] ER PANEL CBC WITH DIFF 2020-08-18 15:18:00 Brandt Ayoub [facility] COVID-19 (ID NOW RAPID 2020-08-18 15:18:00 Brandt Ayoub [facility] TESTING) Medical Branch Encounters Start End Encounter Admission Attending Care Care Encounter Source Date/Time Date/Time Type Type Clinicians Facility Department ID 2021-08-24 Emergency [facility] [id number] Univers 08:04:01 ity [facility] 2021-08-23 Emergency [facility] [id number] [facility]-01-15 2021-01-15 Emergency Singer [facility] [id number] Univers 06:30:00 07:18:00 Garfield Cash [id number] i ty [id number] [id number] [facility] 084 Branch 2020-08-20 2020-08-20 Telephone Maggie LOVE [id number] Univers 00:00:00 00:00:00 , Jeanne NERI [id number] i ty of [facility] [id number] [place] as [id number] [facility] 025 Branch 2020-08-18 2020-08-18 Emergency Behzadi, TRAUMA [id number] Univers 09:11:00 18:51:00 Brandt A CENTER [id number] [place] [id number] [facility] [address] [place] Results Test Description Test Time Test Comments Results Result Comments Source DRUG SCREEN ER (URINE) 2020-08-18 19:17:00 Test Item Value Reference Range Interpretation Comme nts AMPHET (test code = 0838104972) Negative Negative Cocaine Metabolite (test code = Negative Negative 0920918393) OPIATES (test code = 5567690656) Negative Negative THC (test code = 4131694248) Presumptive Positive Negative A RONNI (test code = RONNI) Urine Drug Cutoff Ranges Amphetamine: ? 1,000 ng/mLCocaine: ? 150 ng/mLOpiates: ? 300 ng/mLCannabinoids: ?50 ng/mL The results are to be used only for medical (i.e., treatment) purposes. Unconfirmed screening results must not be used for non-medical purposes (e.g., employment testing, legal testing). Lab Interpretation (test code = Abnormal 14883-4) [facility] 19:17:00 Test Item Value Reference Range Interpretation Comments AMPHET (test code = Negative Negative 1987495543) Cocaine Metabolite (test Negative Negative code = 8718882317) OPIATES (test code = Negative Negative 6260370295) THC (test code = Presumptive Positive Negative A 9007965267) RONNI (test code = RONNI) Urine Drug Cutoff Ranges Amphetamine: ? 1,000 ng/mLCocaine: ? 150 ng/mLOpiates: ? 300 ng/mLCannabinoids: ?50 ng/mL The results are to be used only for medical (i.e., treatment) purposes. Unconfirmed screening results must not be used for non-medical purposes (e.g., employment testing, legal testing). Lab Interpretation (test Abnormal code = 23940-4) [facility]ID [facility]2020-08-18 17:15:00 Test Item Value Reference Range Interpretation Comments SARS-CoV-2 Rapid ID NOW Not Detected Not Detected (test code = 88850-7) RONNI (test code = RONNI) ID NOW COVID-19 Assay is an isothermal nucleic acid amplification test intended for the qualitative detection of nucleic acid from SARS-CoV-2 viral RNA in nasopharyngeal (FILM MASKER) specimens. It is used under Emergency Use Authorization (EUA) by FDA. The limit of detection (LOD) of the assay is 125 Genome Equivalents/mL. A positive result is indicative of the presence of SARS-CoV-2 RNA. ?Clinical correlation with patient history and other diagnostic information is necessary to determine patient infection status. A negative (Not Detected) result does not preclude SARS-CoV-2 infection. In patients with clinical symptoms and other tests that are consistent with SARS-CoV-2 infection, negative results should be treated as presumptive negative and a new specimen should be tested with alternative PCR molecular test. Invalid: Please collect a new specimen for repeat patient testing if clinically indicated. Lab Interpretation Normal (test code = 80129-7) [facility]2020-08-18 17:15:00 Test Item Value Reference Range Interpretation Comments SARS-CoV-2 Rapid ID NOW Not Detected Not Detected (test code = 53048-7) RONNI (test code = RONNI) ID NOW COVID-19 Assay is an isothermal nucleic acid amplification test intended for the qualitative detection of nucleic acid from SARS-CoV-2 viral RNA in nasopharyngeal (FILM MASKER) specimens. It is used under Emergency Use Authorization (EUA) by FDA. The limit of detection (LOD) of the assay is 125 Genome Equivalents/mL. A positive result is indicative of the presence of SARS-CoV-2 RNA. ?Clinical correlation with patient history and other diagnostic information is necessary to determine patient infection status. A negative (Not Detected) result does not preclude SARS-CoV-2 infection. In patients with clinical symptoms and other tests that are consistent with SARS-CoV-2 infection, negative results should be treated as presumptive negative and a new specimen should be tested with alternative PCR molecular test. Invalid: Please collect a new specimen for repeat patient testing if clinically indicated. Lab Interpretation Normal (test code = 71264-5) [facility] DRUG (IMMUNOASSAY) - COMPREHENSIVE DRUG [id number] 17:01:00 Test Item Value Reference Range Interpretation Comments BARBARA S (test code = Negative Negative 0605355522) BENZO S (test code = Negative Negative 4207026241) TRICYCLIC (test code = Negative Negative 7481028098) RONNI (test code = RONNI) Serum Drug Screen Cutoff Ranges Barbiturates ? ? - 3 mcg/mLBenzodiazepines ?- 50 ng/mLTCA ?- 300 ng/mL Test developed and characteristics determined by [facility] Laboratory Services. The results are to be used only for medical (i.e., treatment) purposes. Unconfirmed screening results must not be used for non-medical purposes (e.g., employment testing, legal testing). Lab Interpretation Normal (test code = 32883-1) [facility] DRUG (IMMUNOASSAY) - COMPREHENSIVE DRUG [id number] 17:01:00 Test Item Value Reference Range Interpretation Comments BARBARA S (test code = Negative Negative 0426807503) BENZO S (test code = Negative Negative 3499670647) TRICYCLIC (test code = Negative Negative 2588147970) RONNI (test code = RONNI) Serum Drug Screen Cutoff Ranges Barbiturates ? ? - 3 mcg/mLBenzodiazepines ?- 50 ng/mLTCA ?- 300 ng/mL Test developed and characteristics determined by [facility] Laboratory Services. The results are to be used only for medical (i.e., treatment) purposes. Unconfirmed screening results must not be used for non-medical purposes (e.g., employment testing, legal testing). Lab Interpretation Normal (test code = 14617-9) [facility] WITH [id number] 16:05:00 Test Item Value Reference Range Interpretation Comments WBC (test code = See_Comment H [Automated 1181-2) message] The sy stem which generated this result transmitted reference range : 4.20 - 10.70 10*3/?L. The reference range was not used to interpret this result as normal/abnormal . RBC (test code = See_Comment [Automated 789-8) message] The sy stem which generated this result transmitted reference range : 4.26 - 5.52 10*6/?L. The reference range was not used to interpret this result as normal/abnormal . HGB (test code = 14.9 g/dL 12.2-16.4 718-7) HCT (test code = 44.5 % 38.4-49.3 4544-3) MCV (test code = 93.3 fL 81.7-95.6 787-2) MCH (test code = 31.2 pg 26.1-32.7 785-6) MCHC (test code = 33.5 g/dL 31.2-35 786-4) RDW-SD (test code = 42.5 fL 38.5-51.6 13650-1) RDW-CV (test code = 12.3 % 12.1-15.4 788-0) PLT (test code = See_Comment [Automated 777-3) message] The sy stem which generated this result transmitted reference range : 150 - 328 10*3/ ?L. The reference r adeline was not used to interpret this result as normal/abnormal . MPV (test code = 10.2 fL 9.8-13 22598-0) NRBC/100 WBC (test See_Comment [Automat ed code = 4291620162) message] The system which generated this result transmitted reference range : 0.0 - 10.0 /100 WBCs. The refer ence range was not u sed to interpret th is result as normal/abnormal . NRBC x10^3 (test code <0.01 See_Comment [Auto mated = 0186593796) message] The s ystem which generated this result transmitted reference range : 10*3/?L. The reference range was not used to interpret this result as normal/abnormal . GRAN MAT (NEUT) % 59.0 % (test code = 770-8) IMM GRAN % (test code 0.30 % = 3912796844) LYMPH % (test code = 29.9 % 736-9) MONO % (test code = 8.9 % 5905-5) EOS % (test code = 0.9 % 713-8) BASO % (test code = 1.0 % 706-2) GRAN MAT x10^3(ANC) 8.45 10*3/uL 1.99-6.95 H (test code = 2381006047) IMM GRAN x10^3 (test 0.04 10*3/uL 0-0.06 code = 9737257883) LYMPH x10^3 (test code 4.27 10*3/uL 1.09-3.23 H = 731-0) MONO x10^3 (test code 1.27 10*3/uL 0.36-1.02 H = 742-7) EOS x10^3 (test code = 0.13 10*3/uL 0.06-0.53 711-2) BASO x10^3 (test code 0.14 10*3/uL 0.01-0.09 H = 704-7) Lab Interpretation Abnormal (test code = 43237-6) [facility] WITH [id number] 16:05:00 Test Item Value Reference Range Interpretation Comments WBC (test code = See_Comment H [Automated 2090-2) message] The sy stem which generated this result transmitted reference range : 4.20 - 10.70 10*3/?L. The reference range was not used to interpret this result as normal/abnormal . RBC (test code = See_Comment [Automated 049-8) message] The sy stem which generated this result transmitted reference range : 4.26 - 5.52 10*6/?L. The reference range was not used to interpret this result as normal/abnormal . HGB (test code = 14.9 g/dL 12.2-16.4 718-7) HCT (test code = 44.5 % 38.4-49.3 4544-3) MCV (test code = 93.3 fL 81.7-95.6 787-2) MCH (test code = 31.2 pg 26.1-32.7 785-6) MCHC (test code = 33.5 g/dL 31.2-35 786-4) RDW-SD (test code = 42.5 fL 38.5-51.6 86234-8) RDW-CV (test code = 12.3 % 12.1-15.4 788-0) PLT (test code = See_Comment [Automated 777-3) message] The sy stem which generated this result transmitted reference range : 150 - 328 10*3/ ?L. The reference r adeline was not used to interpret this result as normal/abnormal . MPV (test code = 10.2 fL 9.8-13 78712-9) NRBC/100 WBC (test See_Comment [Automat ed code = 7329088734) message] The system which generated this result transmitted reference range : 0.0 - 10.0 /100 WBCs. The refer ence range was not u sed to interpret th is result as normal/abnormal . NRBC x10^3 (test code <0.01 See_Comment [Auto mated = 3352299205) message] The s ystem which generated this result transmitted reference range : 10*3/?L. The reference range was not used to interpret this result as normal/abnormal . GRAN MAT (NEUT) % 59.0 % (test code = 770-8) IMM GRAN % (test code 0.30 % = 6099569269) LYMPH % (test code = 29.9 % 736-9) MONO % (test code = 8.9 % 5905-5) EOS % (test code = 0.9 % 713-8) BASO % (test code = 1.0 % 706-2) GRAN MAT x10^3(ANC) 8.45 10*3/uL 1.99-6.95 H (test code = 7674064671) IMM GRAN x10^3 (test 0.04 10*3/uL 0-0.06 code = 2771542876) LYMPH x10^3 (test code 4.27 10*3/uL 1.09-3.23 H = 731-0) MONO x10^3 (test code 1.27 10*3/uL 0.36-1.02 H = 742-7) EOS x10^3 (test code = 0.13 10*3/uL 0.06-0.53 711-2) BASO x10^3 (test code 0.14 10*3/uL 0.01-0.09 H = 704-7) Lab Interpretation Abnormal (test code = 77026-1) [facility] Test Item Value Reference Range Interpretation Comments ALCOHOL (test code = <10 mg/dL 8135808226) RONNI (test code = Toxic Greater than or RONNI) equal to 80 mg/dL. NOTE: Whole blood values are approximately 10% to 15% lower than serum and plasma. [facility] 15:52:00 Test Item Value Reference Range Interpretation Comments SALICYLATE (test code <10 mg/L = 8382637336) RONNI (test code = RONNI) Therapeutic Range: ? Analgesic and Antipyretic Use ? 20-100 mg/L ? ? Anti-Inflammatory Use ? 100-250 mg/L Toxic Range: ? Greater than 300 mg/L [facility] 15:52:00 Test Item Value Reference Range Interpretation Comments ACETAMINOP (test code = <10.0 10-30 L 4647722634) RONNI (test code = RONNI) Toxic: Greater than 200 ug/mL @ 4 hour post ingestion or greater than 50 ug/mL @ 12 hour post ingestion Lab Interpretation (test Abnormal code = 72803-6) [facility]:52:00 Test Item Value Reference Range Interpretation Comments ALCOHOL (test code = <10 mg/dL 2908503686) RONNI (test code = Toxic Greater than or RONNI) equal to 80 mg/dL. NOTE: Whole blood values are approximately 10% to 15% lower than serum and plasma. [facility] 15:52:00 Test Item Value Reference Range Interpretation Comments SALICYLATE (test code <10 mg/L = 7264278014) RONNI (test code = RONNI) Therapeutic Range: ? Analgesic and Antipyretic Use ? 20-100 mg/L ? ? Anti-Inflammatory Use ? 100-250 mg/L Toxic Range: ? Greater than 300 mg/L [facility] 15:52:00 Test Item Value Reference Range Interpretation Comments ACETAMINOP (test code = <10.0 10-30 L 3603976649) RONNI (test code = RONNI) Toxic: Greater than 200 ug/mL @ 4 hour post ingestion or greater than 50 ug/mL @ 12 hour post ingestion Lab Interpretation (test Abnormal code = 82669-3) [facility]. METABOLIC PANEL (03504)2020-08-18 15:51:00 Test Item Value Reference Range Interpretation Comments NA (test code = 137 mmol/L 135-145 4152406811) K (test code = 4.7 mmol/L 3.5-5 2596825468) CL (test code = 106 mmol/L 98-108 0142965708) CO2 TOTAL (test code = 23 mmol/L 23-31 3974262571) AGAP (test code = 2-16 3360731610) BUN (test code = 16 mg/dL 7-23 4502487912) GLUCOSE (test code = 79 mg/dL 70-110 3532440511) CREATININE (test code 1.08 mg/dL 0.6-1.25 = 5587589273) TOTAL BILI (test code 0.4 mg/dL 0.1-1.1 = 5468176660) CALCIUM (test code = 9.0 mg/dL 8.6-10.6 1658220491) T PROTEIN (test code = 6.3 g/dL 6.3-8.2 9363834419) ALBUMIN (test code = 4.1 g/dL 3.5-5 8637577897) ALK PHOS (test code = 63 U/L 34-122 2361474787) ALTv (test code = 15 U/L 5-50 1742-6) AST(SGOT) (test code = 28 U/L 13-40 8089970267) eGFR Calculation mL/min/1.73m2 (Non-) (test code = 3797926624) eGFR Calculation mL/min/1.73m2 () (test code = 5808312297) RONNI (test code = RONIN) Association of Glomerular Filtration Rate (GFR) and Staging of Kidney Disease* + -+ + ---+| GFR (mL/min/1.73 m2) ?| With Kidney Damage ?| ?Without Kidney Damage+ -------+ ------+ ---------+| ?>90 ?| ?Stage one ?| ? Normal ?+ --+ -+ ----+| ?60-89 ?| ?Stage two ?| ? Decreased GFR ? + -+ + ---+| ?30-59 ?| ?Stage three ?| ? Stage three ? + -+ + ---+| ?15-29 ?| ?Stage four ? | ? Stage four ?+ --+ -+ ----+| ?<15 (or dialysis) ? ?| ?Stage five ? | ? Stage five ?+ --+ -+ ----+ *Each stage assumes the associated GFR level has been in effect for at least three months. ?Stages 1 to 5, with or without kidney disease, indicate chronic kidney disease. Notes: Determination of stages one and two (with eGFR >59mL/min/1.73 m2) requires estimation of kidney damage for at least three months as defined by structural or functional abnormalities of the kidney, manifested by either:Pathological abnormalities or Markers of kidney damage (including abnormalities in the composition of the blood or urine or abnormalities in imaging tests). [facility]. METABOLIC PANEL (84787)2020-08-18 15:51:00 Test Item Value Reference Range Interpretation Comments NA (test code = 137 mmol/L 135-145 4720675843) K (test code = 4.7 mmol/L 3.5-5 7445237068) CL (test code = 106 mmol/L 98-108 2203025013) CO2 TOTAL (test code = 23 mmol/L 23-31 7499620777) AGAP (test code = 2-16 4158838502) BUN (test code = 16 mg/dL 7-23 2787949646) GLUCOSE (test code = 79 mg/dL 70-110 5687353146) CREATININE (test code 1.08 mg/dL 0.6-1.25 = 9099857917) TOTAL BILI (test code 0.4 mg/dL 0.1-1.1 = 1997481206) CALCIUM (test code = 9.0 mg/dL 8.6-10.6 6360031548) T PROTEIN (test code = 6.3 g/dL 6.3-8.2 0669775439) ALBUMIN (test code = 4.1 g/dL 3.5-5 9013513517) ALK PHOS (test code = 63 U/L 34-122 1010012707) ALTv (test code = 15 U/L 5-50 2-6) AST(SGOT) (test code = 28 U/L 13-40 3803966647) eGFR Calculation mL/min/1.73m2 (Non-) (test code = 5755467114) eGFR Calculation mL/min/1.73m2 () (test code = 5824718161) RONNI (test code = RONNI) Association of Glomerular Filtration Rate (GFR) and Staging of Kidney Disease* + -+ + ---+| GFR (mL/min/1.73 m2) ?| With Kidney Damage ?| ?Without Kidney Damage+ -------+ ------+ ---------+| ?>90 ?| ?Stage one ?| ? Normal ?+ --+ -+ ----+| ?60-89 ?| ?Stage two ?| ? Decreased GFR ? + -+ + ---+| ?30-59 ?| ?Stage three ?| ? Stage three ? + -+ + ---+| ?15-29 ?| ?Stage four ? | ? Stage four ?+ --+ -+ ----+| ?<15 (or dialysis) ? ?| ?Stage five ? | ? Stage five ?+ --+ -+ ----+ *Each stage assumes the associated GFR level has been in effect for at least three months. ?Stages 1 to 5, with or without kidney disease, indicate chronic kidney disease. Notes: Determination of stages one and two (with eGFR >59mL/min/1.73 m2) requires estimation of kidney damage for at least three months as defined by structural or functional abnormalities of the kidney, manifested by either:Pathological abnormalities or Markers of kidney damage (including abnormalities in the composition of the blood or urine or abnormalities in imaging tests). [facility]"
--- NOTE | 2023-04-03 08:31 | RAD REPORT ---
EXAM DESCRIPTION: CT - Head Brain Wo Cont - 04/03/2023 8:19 am CLINICAL HISTORY: head injury 2 days ago, vomiting, dizzy COMPARISON: HEAD BRAIN W O CONTRAST dated 12/07/2013 TECHNIQUE: All CT scans are performed using dose optimization technique as appropriate and may inclu de automated exposure control or mA/KV adjustment according to patient size. FINDINGS: No intracranial hemorrhage, hydrocephalus or extra-axial fluid collection.No areas of brai n edema or evidence of midline shift. Mucous retention cyst in the right maxillary sinus. The calvarium is intact. IMPRESSION: No acute intracranial abnormality.
--- NOTE | 2023-04-03 08:38 | RAD REPORT ---
EXAM DESCRIPTION: RAD - Ribs Right - 04/03/2023 8:15 am CLINICAL HISTORY: BLUNT CHEST TRAUMA COMPARISON: No comparisons FINDINGS/IMPRESSION: No displaced right-sided rib fractures identified. No pneumothorax. The lungs a re clear. The heart size is normal. Upper abdomen is unremarkable.
--- NOTE | 2023-04-03 08:41 | ER ---
Nurse's Notes [facility] Name: Lucio Lerma Jr Age: 37 yrs Sex: Male : 1985 Arrival Date: 04/03/2023 Time: 07:35 Bed 12 Private MD: Diagnosis: Postconcussional syndrome;Unspecified injury of head, subsequent encounter Presentation: 04/03 07:43 Chief complaint: Patient states: "I slipped and fell and hit my head on April 01". Pt aa5 reports dizziness and vomiting since last night. Pt states [facility] and [facility] gave me sutures on the back of my head". Pt also reports back pain. Coronavirus screen: At this time, the client does not indicate any symptoms associated with coronavirus-19. Ebola Screen: Patient denies travel to an Ebola-affected area in the 21 days before illness onset. Initial Sepsis Screen: Does the patient meet any 2 criteria? No. Patient's initial sepsis screen is negative. Does the patient have a suspected source of infection? No. Patient's initial sepsis screen is negative. Risk Assessment: Do you want to hurt yourself or someone else? Patient reports no desire to harm self or others. Onset of symptoms was March 2023. 07:43 Acuity: SVITLANA 3 aa5 07:43 Method Of Arrival: Ambulatory aa5 Triage Assessment: 07:45 General: Appears comfortable, Behavior is calm, cooperative. Pain: Complains of pain in aa5 back. Neuro: Level of Consciousness is awake, alert, obeys commands, Oriented to person, place, time, situation. Respiratory: Airway is patent Respiratory effort is even, unlabored, Respiratory pattern is regular, symmetrical. Derm: Skin is dry, Skin is normal, Skin temperature is warm. Historical: - Allergies: 07:45 No Known Allergies; aa5 - PMHx: 07:45 Anxiety; Bipolar disorder; drug abuse; Seizures (drug induced); aa5 - Family history:: not pertinent. - Hospitalizations: : No recent hospitalization is reported. Assessment: 08:54 Reassessment: Patient is alert, oriented x 3, equal unlabored respirations, skin aa5 warm/dry/pink. Vital Signs: 07:43 BP 142 / 79; Pulse 65; Resp 18 S; Temp 98.2(TE); Pulse Ox 98% on R/A; Weight 112.04 kg aa5 (R); Height 6 ft. 3 in. (R); 07:43 Body Mass Index 30.87 (112.04 kg, 190.5 cm) aa5 ED Course: 07:39 Patient arrived in ED. im 07:42 Poncho Land MD is Attending Physician. rn 07:43 Arm band placed on. aa5 07:45 Triage completed. aa5 08:16 XRAY Ribs RIGHT In Process Unspecified. EDMS 08:21 CT Head Brain wo Cont In Process Unspecified. EDMS 08:55 No provider procedures requiring assistance completed. Patient did not have IV access aa5 during this emergency room visit. Administered Medications: No medications were administered Medication: 08:54 VIS not applicable for this client. aa5 Outcome: 08:41 Discharge ordered by . rn 08:54 Discharged to home ambulatory, with family. aa5 08:54 Condition: stable 08:54 Discharge instructions given to patient, Instructed on discharge instructions, follow up and referral plans. medication usage, Demonstrated understanding of instructions, follow-up care, medications, Prescriptions given X 1. 08:55 Patient left the ED. aa5 Signatures: Dispatcher [employer] EDPoncho Hurley MD MD rn Calderon, Audri RN RN aa5 Martha Richardson im Corrections: (The following items were deleted from the chart) 07:46 07:43 Chief complaint: Patient states: "I slipped and fell and hit my head on March aa5 8th". Pt reports dizziness and vomiting since last night. Pt states "[facility] and [facility] me [facility]ures on the back of my head" aa5
--- NOTE | 2023-04-03 08:41 | EDPHYS ---
Physician Documentation [facility] Name: Lucio Lerma Jr Age: 37 yrs Sex: Male : 1985 Arrival Date: 04/03/2023 Time: 07:35 Bed 12 Private MD: ED Physician Poncho Land HPI: 04/03 08:23 This 37 yrs old Black Male presents to ER via Ambulatory with complaints of headache, rn dizziness. 08:23 Details of fall: The patient fell from an upright position, and struck a concrete rn surface. Onset: The symptoms/episode began/occurred 2 day(s) ago. Associated injuries: The patient sustained injury to the head. Severity of symptoms: At their worst the symptoms were mild, in the emergency department the symptoms are unchanged. The patient has not experienced similar symptoms in the past. The patient has not recently seen a physician. Pt reports fall from standing 2 days ago, in long term, hit head on floor, no LOC, has been dizzy since then. Reports "took pictures" of head, and sent back to dorm with stitches. Also reports right posterior rib pain since fall, was not evaluated for rib injury at the time of injury.. Historical: - Allergies: 07:45 No Known Allergies; aa5 - PMHx: 07:45 Anxiety; Bipolar disorder; drug abuse; Seizures (drug induced); aa5 - Family history:: not pertinent. - Hospitalizations: : No recent hospitalization is reported. ROS: 08:23 Constitutional: Negative for fever, chills, and weight loss, Eyes: Negative for injury, rn pain, redness, and discharge, Neck: Negative for injury, pain, and swelling, Cardiovascular: + right posterior lateral chest wall pain Respiratory: Negative for shortness of breath, cough, wheezing, and pleuritic chest pain, Abdomen/GI: + nausea/vomiting Back: Negative for injury and pain, MS/Extremity: Negative for injury and deformity, Skin: Negative for injury, rash, and discoloration, Neuro: + headache and dizziness Exam: 08:23 Constitutional: This is a well developed, well nourished patient who is awake, alert, rn and in no acute distress. Ambulatory to triage without assistance or difficulty. Head/Face: Normocephalic, 4 sutures on occiput of scalp, no active bleeding, c/d/i Neck: No midline tenderness Chest/axilla: Mild right posterior-lateral chest wall tenderness without crepitus. Cardiovascular: Regular rate and rhythm. No pulse deficits. Respiratory: No increased work of breathing, no retractions or nasal flaring. Abdomen/GI: Soft, non-tender Skin: Warm, dry MS/ Extremity: Pulses equal, no cyanosis. Neuro: Awake and alert, GCS 15, oriented to person, place, time, and situation. Cranial nerves II-XII grossly intact. Motor strength 5/5 in all extremities. Sensory grossly intact. Cerebellar exam normal. Normal gait. Vital Signs: 07:43 BP 142 / 79; Pulse 65; Resp 18 S; Temp 98.2(TE); Pulse Ox 98% on R/A; Weight 112.04 kg aa5 (R); Height 6 ft. 3 in. (R); 07:43 Body Mass Index 30.87 (112.04 kg, 190.5 cm) aa5 MDM: 07:42 Patient medically screened. rn 08:40 Differential diagnosis: abrasion, closed head injury, contusion, fracture, laceration, rn concussion, rib fracture. Data reviewed: vital signs, nurses notes, radiologic studies, CT scan, plain films, and as a result, I will discharge patient. Counseling: I had a detailed discussion with the patient and/or guardian regarding: the historical points, exam findings, and any diagnostic results supporting the discharge/admit diagnosis, radiology results, the need for outpatient follow up, to return to the emergency department if symptoms worsen or persist or if there are any questions or concerns that arise at home. Special discussion: I discussed with the patient/guardian in detail that at this point there is no indication for admission to the hospital. It is understood, however, that if the symptoms persist or worsen the patient needs to return immediately for re-evaluation. 04/03 07:50 Order name: XRAY Ribs RIGHT; Complete Time: 08:40 rn 04/03 07:50 Order name: CT Head Brain wo Cont; Complete Time: 08:40 rn Administered Medications: No medications were administered Disposition Summary: 04/03/23 08:41 Discharge Ordered Location: Home rn Problem: new rn Symptoms: have improved rn Condition: Stable rn Diagnosis - Postconcussional syndrome rn - Unspecified injury of head, subsequent encounter rn Followup: rn - With: Private Physician - When: As needed - Reason: Recheck today's complaints, Re-evaluation by your physician Discharge Instructions: - Discharge Summary Sheet rn - Head Injury, Adult rn - Post-Concussion Syndrome rn Forms: - Medication Reconciliation Form rn - Thank You Letter rn - Antibiotic broomcorn sorter - Prescription Opioid Use rn - Work release form eb Prescriptions: - ondansetron 4 mg Oral Tablet,disintegrating - take 1 tablet by ORAL route every 8 hours As needed; 12 tablet; Refills: 0, rn Product Selection Permitted Signatures: Dispatcher [employer] Poncho Bullock MD MD rn Enedina Kincaid RN RN aa5
[2023-04-03 09:07] VITALS: BP 142/79; TEMP 98.2; O2SAT 98
== END 2023-04-03 08:55 | disposition home or self-care (01) ==
LOC: ER 07:35
DX: R42 Dizziness and giddiness (principal); F07.81 Postconcussional syndrome; R07.89 Other chest pain
CPT/HCPCS: 70450; 99283

== ENCOUNTER 2023-04-15 14:53 | Emergency (ER) | payer SELFPAY ==
--- OUTSIDE RECORDS SUMMARY | 2023-04-15 15:04 | XMS REPORT | Continuity of Care Document ---
:1985 Author Organization [facility] t Address [address] [place] [address] [address] [place] [address] Care Team Providers Name Role Phone Sharpless Primary Care Physician Garfield Medina DO Attending Clinician Jeanne Serrano LMSW Attending Clinician Mega VALENCIA, Brandt Bowser Attending Clinician Payers Payer Name Policy Type Policy Number Effective Date Expiration Date S brigid [employer] [id number] 2018 CARE 00:00:00 Problems Condition Condition Condition Status Onset Resolution Last Treating Co mments Source Name Details Category Date Date Treatment Clinician Date Anxiety Anxiety Disease Active Univers and [place] 12-[place] [address] [place] [address] Allergies, Adverse Reactions, Alerts Allergy Allergy Status Severity Reaction(s) Onset Inactive Treating Comm ents Source Name Type Date Date Clinician NO KNOWN Drug Active Univers ALLERGIE Class ity of S [facility] Social History Social Habit Start Date Stop Date Quantity Comments Source History of tobacco 2003-12-22 Cigarette Smoker University of use 00:00:00 [facility] Exposure to Not sure University of SARS-CoV-2 (event) [facility] Tobacco use and 2018-12-22 2018-12-22 Never used Universit y of exposure 00:00:00 00:00:00 [facility] Alcohol Comment 2018-12-22 2018-12-22 6 packs of beer Univ ersity of 00:00:00 00:00:00 daily since 18 [place] [facility] yrs of age [facility] Cigarettes smoked 2016-02-24 2016-02-24 FELI Munson current (pack per 00:00:00 00:00:00 [facility] day) - Reported Alcohol intake 2016-02-24 2016-02-24 Current drinker FELI Lorenzana 00:00:00 00:00:00 of alcohol [facility] (finding) Sex Ass[birth year] At [birth year] FELI Michelles 00:00:00 00:00:00 [facility] Smoking Status Start Date Stop Date Source Current every day smoker 2018-12-22 00:00:00 Uni versity [facility] Medications Ordered Filled Start Stop Current Ordering Indication Dosage Frequency Signature Comments Components Source Medication Medication Date Date Medication? Clinician (SIG) Name Name diphenhydrA 2019-10 2020- No 25mg 25 mg, Uni vers MINE 0-25 10-25 Intramuscu ity of (BENADRYL) 20:45: 19:38 lar, ONCE, [place] injection 00 :00 1 dose, Medical 25 mg [place] 08/18/20 at 1545, STAT haloperidol 2019-10 2020- No 5mg 5 mg, Univ ers lactate 0-25 10-25 Intramuscu ity o f (HALDOL) 20:45: 19:38 [place] 5 00 :00 1 dose, Medic al mg [place] 08/18/20 at 1545, MEREDITH diphenhydrA 2019-10 2020- No 25mg 25 mg, Uni vers MINE 0-25 10-25 Intramuscu ity of (BENADRYL) 20:45: 19:38 lar, ONCE, [place] injection 00 :00 1 dose, Medical 25 mg [place] 08/18/20 at 1545, STAT haloperidol 2019-10 2020- No 5mg 5 mg, Univ ers lactate 0-25 10-25 Intramuscu ity o f (HALDOL) 20:45: 19:38 [place]CE[place] 5 00 :00 1 dose, Medic al mg [place] 08/18/20 at 1545, MEREDITH LORazepam 2019-10 2020- [...] ONCE, [place] dose, [facility] 08/18/20 Branch at 1330, MEREDITH docusate Yes [id number] 100mg Take 1 U nivers (COLACE) 2-28 capsule by ity o f 100 mg 00:00: mouth [place] capsule 00 daily. Medical Branch docusate Yes [id number] 100mg Take 1 U nivers (COLACE) 2-28 capsule by ity o f 100 mg 00:00: mouth [place] capsule 00 daily. [facility] Branch docusate Yes [id number] 100mg Take 1 U nivers (COLACE) 2-28 capsule by ity o f 100 mg 00:00: mouth [place] capsule 00 daily. [facility] Branch docusate Yes [id number] 100mg Take 1 U nivers (COLACE) 2-28 capsule by ity o f 100 mg 00:00: mouth [place] capsule 00 daily. [facility] Vital Signs Vital Name Observation Time Observation Value Comments Source Respiratory rate 2021-01-15 11:35:44 18 /min [facility] Systolic blood 2021-01-15 11:28:00 167 mm[Hg] Univer sity [facility] Diastolic blood 2021-01-15 11:28:00 96 mm[facility]Hg[facility] 2021-01-15 11:28:00 100 /min [facility] Body temperature 2021-01-15 11:28:00 36.28 Viviane [facility] Body weight 2021-01-15 11:28:00 99.791 kg [facility] BMI 2021-01-15 11:28:00 27.50 kg/m2 [facility] Oxygen saturation in 2021-01-15 11:28:00 99 /min [facility] Arterial blood by [facility] Pulse oximetry Branch Systolic blood 2020-08-18 22:25:00 128 mm[Hg] Univer sity of pressure [facility] Diastolic blood 2020-08-18 22:25:00 78 mm[Hg] Unive rsity of pressure [facility] Heart rate 2020-08-18 22:25:00 64 /min [facility] Respiratory rate 2020-08-18 22:25:00 18 /min [facility] Oxygen saturation in 2020-08-18 22:25:00 98 /min [facility] Arterial blood by [facility] Pulse oximetry Branch Systolic blood 2020-08-18 18:47:00 142 mm[Hg] Univer sity of pressure [facility] Diastolic blood 2020-08-18 18:47:00 80 mm[Hg] Unive rsity of pressure [facility] Heart rate 2020-08-18 18:47:00 64 /min [facility] Respiratory rate 2020-08-18 18:47:00 18 /min [facility] Oxygen saturation in 2020-08-18 18:47:00 98 /min [facility] Arterial blood by [facility] Pulse oximetry Branch Body temperature 2020-08-18 16:20:00 36.28 Viviane [facility] Body weight 2020-08-18 14:46:00 100 kg [facility] BMI 2020-08-18 14:46:00 27.56 kg/m2 [facility] Procedures Procedure Date / Time Performed Performing Clinician Sourc e COMP. METABOLIC PANEL 2020-08-18 15:18:00 Brandt Ayoub [facility] ([id number]) [facility] SALICYLATE 2020-08-18 15:18:00 Brandt Ayoub [facility] ETHANOL 2020-08-18 15:18:00 Brandt Ayoub [facility] GALV/CLC ONLY - URINE 2020-08-18 15:18:00 Brandt Ayoub [facility] DRUG (IMMUNOASSAY) - 4 [facility] [place] ER PANEL CBC WITH DIFF 2020-08-18 15:18:00 Brandt Ayoub [facility] COVID-19 (ID NOW RAPID 2020-08-18 15:18:00 Brandt Ayoub [facility] TESTING) Medical Branch Encounters Start End Encounter Admission Attending Care Care Encounter Source Date/Time Date/Time Type Type Clinicians Facility Department ID 2021-08-24 Emergency [facility] [id number] Univers 08:04:01 ity [facility] 2021-08-23 Emergency [facility] [id number] [facility]-01-15 2021-01-15 Emergency [facility] [id number] Univers 06:30:00 07:18:00 Garfield Cash [id number] i [id number] [id number] [facility] 084 Branch 2020-08-20 2020-08-20 Telephone Maggie LOVE [id number] Univers 00:00:00 00:00:00 , Jeanne NERI [id number] i ty of [facility] [id number] Beau as [id number] [facility] 025 Branch 2020-08-18 2020-08-18 Emergency Behzadi, TRAUMA [id number] Univers 09:11:00 18:51:00 Brandt A CENTER [id number] [id number] [id number] [facility] 014 Depue Results Test Description Test Time Test Comments Results Result Comments Source DRUG SCREEN ER (URINE) 2020-08-18 19:17:00 Test Item Value Reference Range Interpretation Comme nts AMPHET (test code = 3743042062) Negative Negative Cocaine Metabolite (test code = Negative Negative 4223894640) OPIATES (test code = 7244945048) Negative Negative THC (test code = 2991636301) Presumptive Positive Negative A RONNI (test code = RONNI) Urine Drug Cutoff Ranges Amphetamine: ? 1,000 ng/mLCocaine: ? 150 ng/mLOpiates: ? 300 ng/mLCannabinoids: ?50 ng/mL The results are to be used only for medical (i.e., treatment) purposes. Unconfirmed screening results must not be used for non-medical purposes (e.g., employment testing, legal testing). Lab Interpretation (test code = Abnormal 04553-2) [facility]2020-08-18 19:17:00 Test Item Value Reference Range Interpretation Comments AMPHET (test code = Negative Negative 3595974248) Cocaine Metabolite (test Negative Negative code = 6321741369) OPIATES (test code = Negative Negative 0879671104) THC (test code = Presumptive Positive Negative A 0705434602) RONNI (test code = RONNI) Urine Drug Cutoff Ranges Amphetamine: ? 1,000 ng/mLCocaine: ? 150 ng/mLOpiates: ? 300 ng/mLCannabinoids: ?50 ng/mL The results are to be used only for medical (i.e., treatment) purposes. Unconfirmed screening results must not be used for non-medical purposes (e.g., employment testing, legal testing). Lab Interpretation (test Abnormal code = 56994-8) [facility]-19 (ID NOW RAPID TESTING)2020-08-18 17:15:00 Test Item Value Reference Range Interpretation Comments SARS-CoV-2 Rapid ID NOW Not Detected Not Detected (test code = 79723-6) RONNI (test code = RONNI) ID NOW COVID-19 Assay is an isothermal nucleic acid amplification test intended for the qualitative detection of nucleic acid from SARS-CoV-2 viral RNA in nasopharyngeal (STENOGRAPHER SECRETARY) specimens. It is used under Emergency Use [...] indicated. Lab Interpretation Normal (test code = 25803-0) [facility]-19 (ID NOW RAPID TESTING)2020-08-18 17:15:00 Test Item Value Reference Range Interpretation Comments SARS-CoV-2 Rapid ID NOW Not Detected Not Detected (test code = 85216-4) RONNI (test code = RONNI) ID NOW COVID-19 Assay is an isothermal nucleic acid amplification test intended for the qualitative detection of nucleic acid from SARS-CoV-2 viral RNA in nasopharyngeal (STENOGRAPHER SECRETARY) specimens. It is used under Emergency Use [...] indicated. Lab Interpretation Normal (test code = 60237-9) [facility] DRUG (IMMUNOASSAY) - COMPREHENSIVE DRUG [id number] 17:01:00 Test Item Value Reference Range Interpretation Comments BARBARA S (test code = Negative Negative 5009612978) BENZO S (test code = Negative Negative 5070635616) TRICYCLIC (test code = Negative Negative 0503818883) RONNI (test code = RONNI) Serum Drug Screen Cutoff Ranges Barbiturates ? ? - 3 mcg/mLBenzodiazepines ?- 50 ng/mLTCA ?- 300 ng/mL Test developed and characteristics determined by [facility] Laboratory Services. The results are to be used only for medical (i.e., treatment) purposes. Unconfirmed screening results must not be used for non-medical purposes (e.g., employment testing, legal testing). Lab Interpretation Normal (test code = 02118-0) [facility] DRUG (IMMUNOASSAY) - COMPREHENSIVE DRUG [id number] 17:01:00 Test Item Value Reference Range Interpretation Comments BARBARA S (test code = Negative Negative 2487136560) BENZO S (test code = Negative Negative 9898161090) TRICYCLIC (test code = Negative Negative 7052934088) RONNI (test code = RONNI) Serum Drug Screen Cutoff Ranges Barbiturates ? ? - 3 mcg/mLBenzodiazepines ?- 50 ng/mLTCA ?- 300 ng/mL Test developed and characteristics determined by [facility] Laboratory Services. The results are to be used only for medical (i.e., treatment) purposes. Unconfirmed screening results must not be used for non-medical purposes (e.g., employment testing, legal testing). Lab Interpretation Normal (test code = 75599-8) [facility] WITH [id number] 16:05:00 Test Item Value Reference Range Interpretation Comments WBC (test code = See_Comment H [Automated 6490-2) message] The sy stem which generated this [...] RDW-SD (test code = 42.5 fL 38.5-51.6 30350-5) RDW-CV (test code = 12.3 % 12.1-15.4 788-0) PLT (test code = See_Comment [Automated 777-3) message] The sy stem which generated this result transmitted reference range : 150 - 328 10*3/ ?L. The reference r adeline was not used to interpret this result as normal/abnormal . MPV (test code = 10.2 fL 9.8-13 30897-7) NRBC/100 WBC (test See_Comment [Automat ed code = 7543394520) message] The system which generated this result transmitted reference range : 0.0 - 10.0 /100 WBCs. The refer ence range was not u sed to interpret th is result as normal/abnormal . NRBC x10^3 (test code <0.01 See_Comment [Auto mated = 0698737719) message] The s ystem which generated this result transmitted reference range : 10*3/?L. The reference range was not used to interpret this result as normal/abnormal . GRAN MAT (NEUT) % 59.0 % (test code = 770-8) IMM GRAN % (test code 0.30 % = 8687168128) LYMPH % (test code = 29.9 % 736-9) MONO % (test code = 8.9 % 5905-5) EOS % (test code = 0.9 % 713-8) BASO % (test code = 1.0 % 706-2) GRAN MAT x10^3(ANC) 8.45 10*3/uL 1.99-6.95 H (test code = 1298923046) IMM GRAN x10^3 (test 0.04 10*3/uL 0-0.06 code = 1946399457) LYMPH x10^3 (test code 4.27 10*3/uL 1.09-3.23 H = 731-0) MONO x10^3 (test code 1.27 10*3/uL 0.36-1.02 H = 742-7) EOS x10^3 (test code = 0.13 10*3/uL 0.06-0.53 711-2) BASO x10^3 (test code 0.14 10*3/uL 0.01-0.09 H = 704-7) Lab Interpretation Abnormal (test code = 74995-1) [facility] WITH [id number] 16:05:00 Test Item Value Reference Range Interpretation Comments WBC (test code = See_Comment H [Automated 2054-2) message] The sy stem which generated this result transmitted reference range : 4.20 - 10.70 10*3/?L. The reference range was not used to interpret this result as normal/abnormal . RBC (test code = See_Comment [Automated 309-8) message] The sy stem which generated this [...] RDW-SD (test code = 42.5 fL 38.5-51.6 89858-7) RDW-CV (test code = 12.3 % 12.1-15.4 788-0) PLT (test code = See_Comment [Automated 777-3) message] The sy stem which generated this result transmitted reference range : 150 - 328 10*3/ ?L. The reference r adeline was not used to interpret this result as normal/abnormal . MPV (test code = 10.2 fL 9.8-13 05669-9) NRBC/100 WBC (test See_Comment [Automat ed code = 2050217855) message] The system which generated this result transmitted reference range : 0.0 - 10.0 /100 WBCs. The refer ence range was not u sed to interpret th is result as normal/abnormal . NRBC x10^3 (test code <0.01 See_Comment [Auto mated = 1297916329) message] The s ystem which generated this result transmitted reference range : 10*3/?L. The reference range was not used to interpret this result as normal/abnormal . GRAN MAT (NEUT) % 59.0 % (test code = 770-8) IMM GRAN % (test code 0.30 % = 9104785824) LYMPH % (test code = 29.9 % 736-9) MONO % (test code = 8.9 % 5905-5) EOS % (test code = 0.9 % 713-8) BASO % (test code = 1.0 % 706-2) GRAN MAT x10^3(ANC) 8.45 10*3/uL 1.99-6.95 H (test code = 7140607862) IMM GRAN x10^3 (test 0.04 10*3/uL 0-0.06 code = 3805085435) LYMPH x10^3 (test code 4.27 10*3/uL 1.09-3.23 H = 731-0) MONO x10^3 (test code 1.27 10*3/uL 0.36-1.02 H = 742-7) EOS x10^3 (test code = 0.13 10*3/uL 0.06-0.53 711-2) BASO x10^3 (test code 0.14 10*3/uL 0.01-0.09 H = 704-7) Lab Interpretation Abnormal (test code = 99780-7) [facility] 15:52:00 Test Item Value Reference Range Interpretation Comments ALCOHOL (test code = <10 mg/dL 2041284477) RONNI (test code = Toxic Greater than or RONNI) equal to 80 mg/dL. NOTE: Whole blood values are approximately 10% to 15% lower than serum and plasma. [facility]25 15:52:00 Test Item Value Reference Range Interpretation Comments SALICYLATE (test code <10 mg/L = 2009188447) RONNI (test code = RONNI) Therapeutic Range: ? Analgesic and Antipyretic Use ? 20-100 mg/L ? ? Anti-Inflammatory Use ? 100-250 mg/L Toxic Range: ? Greater than 300 mg/L [facility]2020-10-25 15:52:00 Test Item Value Reference Range Interpretation Comments ACETAMINOP (test code = <10.0 10-30 L 1462223390) RONNI (test code = RONNI) Toxic: Greater than 200 ug/mL @ 4 hour post ingestion or greater than 50 ug/mL @ 12 hour post ingestion Lab Interpretation (test Abnormal code = 48455-6) [facility] 15:52:00 Test Item Value Reference Range Interpretation Comments ALCOHOL (test code = <10 mg/dL 4895437179) RONNI (test code = Toxic Greater than or RONNI) equal to 80 mg/dL. NOTE: Whole blood values are approximately 10% to 15% lower than serum and plasma. [facility]25 15:52:00 Test Item Value Reference Range Interpretation Comments SALICYLATE (test code <10 mg/L = 3578931563) RONNI (test code = RONNI) Therapeutic Range: ? Analgesic and Antipyretic Use ? 20-100 mg/L ? ? Anti-Inflammatory Use ? 100-250 mg/L Toxic Range: ? Greater than 300 mg/L [facility]2020-10-25 15:52:00 Test Item Value Reference Range Interpretation Comments ACETAMINOP (test code = <10.0 10-30 L 2697158715) RONNI (test code = RONNI) Toxic: Greater than 200 ug/mL @ 4 hour post ingestion or greater than 50 ug/mL @ 12 hour post ingestion Lab Interpretation (test Abnormal code = 09660-9) [facility] MET[facility]OLIC PANEL (97566)2020-08-18 15:51:00 Test Item Value Reference Range Interpretation Comments NA (test code = 137 mmol/L 135-145 5606418647) K (test code = 4.7 mmol/L 3.5-5 7649450703) CL (test code = 106 mmol/L 98-108 7527983471) CO2 TOTAL (test code = 23 mmol/L 23-31 6386697182) AGAP (test code = 2-16 8778759695) BUN (test code = 16 mg/dL 7-23 3109326356) GLUCOSE (test code = 79 mg/dL 70-110 8336544736) CREATININE (test code 1.08 mg/dL 0.6-1.25 = 1004292329) TOTAL BILI (test code 0.4 mg/dL 0.1-1.1 = 1174656866) CALCIUM (test code = 9.0 mg/dL 8.6-10.6 0158221086) T PROTEIN (test code = 6.3 g/dL 6.3-8.2 8733804581) ALBUMIN (test code = 4.1 g/dL 3.5-5 0258237227) ALK PHOS (test code = 63 U/L 34-122 1254777651) ALTv (test code = 15 U/L 5-50 1742-6) AST(SGOT) (test code = 28 U/L 13-40 1827654486) eGFR Calculation mL/min/1.73m2 (Non-) (test code = 3665522420) eGFR Calculation mL/min/1.73m2 () (test code = 3356752922) RONNI (test code = RONNI) Association of [...] or urine or abnormalities in imaging tests). [facility]. METABOLIC PANEL (52322)2020-08-18 15:51:00 Test Item Value Reference Range Interpretation Comments NA (test code = 137 mmol/L 135-145 9069262420) K (test code = 4.7 mmol/L 3.5-5 1561669821) CL (test code = 106 mmol/L 98-108 7907927697) CO2 TOTAL (test code = 23 mmol/L 23-31 8076613795) AGAP (test code = 2-16 8012505771) BUN (test code = 16 mg/dL 7-23 0985199545) GLUCOSE (test code = 79 mg/dL 70-110 1263976057) CREATININE (test code 1.08 mg/dL 0.6-1.25 = 1386769274) TOTAL BILI (test code 0.4 mg/dL 0.1-1.1 = 0898807559) CALCIUM (test code = 9.0 mg/dL 8.6-10.6 9774886343) T PROTEIN (test code = 6.3 g/dL 6.3-8.2 1946924845) ALBUMIN (test code = 4.1 g/dL 3.5-5 3982478753) ALK PHOS (test code = 63 U/L 34-122 4028045569) ALTv (test code = 15 U/L 5-50 1742-6) AST(SGOT) (test code = 28 U/L 13-40 4571045845) eGFR Calculation mL/min/1.73m2 (Non-) (test code = 7927436842) eGFR Calculation mL/min/1.73m2 () (test code = 8091873275) RONNI (test code = RONNI) Association of [...] or urine or abnormalities in imaging tests). [facility]"
--- NOTE | 2023-04-15 15:09 | ER ---
Nurse's Notes [facility] Name: Lucio Lerma Jr Age: 37 yrs Sex: Male : 1985 Arrival Date: 04/15/2023 Time: 14:53 Bed 12 Private MD: Diagnosis: Encounter for removal of sutures Presentation: 04/15 14:58 Chief complaint: Patient states: that he is here to have the sutures on his head cm10 removed. Patient had them placed on April 01. Coronavirus screen: Vaccine status: Patient reports being unvaccinated. Ebola Screen: No symptoms or risks identified at this time. Initial Sepsis Screen: Does the patient meet any 2 criteria? No. Patient's initial sepsis screen is negative. Does the patient have a suspected source of infection? No. Patient's initial sepsis screen is negative. Risk Assessment: Do you want to hurt yourself or someone else? Patient reports no desire to harm self or others. Onset of symptoms is unknown. 14:58 Method Of Arrival: Ambulatory cm10 14:58 Acuity: SVITLANA 4 cm10 Historical: - Allergies: 15:00 No Known Drug Allergies; cm10 - PMHx: 15:00 Anxiety; Bipolar disorder; drug abuse; Seizures (drug induced); cm10 - Immunization history:: Adult Immunizations unknown. - Social history:: Smoking status: Patient denies any tobacco usage or history of. - Family history:: not pertinent. Screenin:10 [facility] ED Fall Risk Assessment (Adult) Score/Fall Risk Level 0 - 2 = Low Risk ll1 Oriented to surroundings, Maintained a safe environment, Educated pt \T\ family on fall prevention, incl call for assistance when getting out of bed, Hourly rounding (assess needs \T\ fall precautionary measures) done. Abuse screen: Denies threats or abuse. Nutritional screening: No deficits noted. Tuberculosis screening: No symptoms or risk factors identified. Assessment: 15:10 Reassessment: No changes from previously documented assessment. Patient and/or family ll1 updated on plan of care and expected duration. Pain level reassessed. sutures removed by Dr. Tomas. General: Appears in no apparent distress. Behavior is calm, cooperative. Pain: Denies pain. Derm: Reports needs stitches removed from scalp. Vital Signs: 14:58 BP 139 / 66; Pulse 44; Resp 16; Temp 98.9(O); Pulse Ox 100% on R/A; Weight 113.4 kg cm10 (R); Height 6 ft. 3 in. (R); Pain 0/10; 14:58 Body Mass Index 31.25 (113.40 kg, 190.5 cm) cm10 14:58 Pain Scale: Adult cm10 ED Course: 14:57 Patient arrived in ED. mr 14:58 Jun Tomas MD is Attending Physician. rt 15:00 Triage completed. cm10 15:00 Arm band placed on Patient placed in an exam room, on a stretcher. cm10 15:10 No provider procedures requiring assistance completed. Patient did not have IV access ll1 during this emergency room visit. 15:11 Patient has correct armband on for positive identification. Bed in low position. Call ll1 light in reach. Cardiac monitoring not applicable on this patient. Administered Medications: No medications were administered Medication: 15:11 VIS not applicable for this client. ll1 Outcome: 15:07 Discharge ordered by . rt 15:10 Discharged to home ambulatory. ll1 15:10 Condition: stable 15:10 Discharge instructions given to patient, Instructed on discharge instructions, follow up and referral plans. Demonstrated understanding of instructions, follow-up care. 15:11 Patient left the ED. ll1 Signatures: Anette Aranda mr Barb Sommers, RN RN ll1 Jun Tomas MD MD rt Ester Phillpi RN RN cm10
--- NOTE | 2023-04-15 15:09 | EDPHYS ---
Physician Documentation [facility] Name: Lucio Lerma Jr Age: 37 yrs Sex: Male : 1985 Arrival Date: 04/15/2023 Time: 14:53 Bed 12 Private MD: ED Physician Jun Tomas HPI: 04/15 15:08 This 37 yrs old Black Male presents to ER via Ambulatory with complaints of Suture rt Removal. 15:08 Patient had sutures placed to the occiput, reportedly 4 sutures, 14 days ago. Presents rt requesting removal of the sutures. Denies any complaints states that the wound appears to be well-healing.. Historical: - Allergies: 15:00 No Known Drug Allergies; cm10 - PMHx: 15:00 Anxiety; Bipolar disorder; drug abuse; Seizures (drug induced); cm10 - Immunization history:: Adult Immunizations unknown. - Social history:: Smoking status: Patient denies any tobacco usage or history of. - Family history:: not pertinent. ROS: 15:08 Constitutional: Negative for fever, chills, and weight loss, Neck: Negative for injury, rt pain, and swelling, Neuro: Negative for headache, weakness, numbness, tingling, and seizure, Psych: Negative for depression, anxiety, suicide ideation, homicidal ideation, and hallucinations. 15:08 Skin: Positive for Repaired laceration, negative for infection. Exam: 15:08 Constitutional: This is a well developed, well nourished patient who is awake, alert, rt and in no acute distress. Neck: Trachea midline, no thyromegaly or masses palpated, and no cervical lymphadenopathy. Supple, full range of motion without nuchal rigidity, or vertebral point tenderness. No Meningismus. Skin: Warm, dry with normal turgor. Normal color with no rashes, no lesions, and no evidence of cellulitis. MS/ Extremity: Pulses equal, no cyanosis. Neurovascular intact. Full, normal range of motion. Neuro: Awake and alert, GCS 15, oriented to person, place, time, and situation. Cranial nerves II-XII grossly intact. Motor strength 5/5 in all extremities. Sensory grossly intact. Cerebellar exam normal. Normal gait. Psych: Awake, alert, with orientation to person, place and time. Behavior, mood, and affect are within normal limits. 15:08 Head/face: 4 sutures to the posterior head, appears to be well-healing, no surrounding erythema. Vital Signs: 14:58 BP 139 / 66; Pulse 44; Resp 16; Temp 98.9(O); Pulse Ox 100% on R/A; Weight 113.4 kg cm10 (R); Height 6 ft. 3 in. (R); Pain 0/10; 14:58 Body Mass Index 31.25 (113.40 kg, 190.5 cm) cm10 14:58 Pain Scale: Adult cm10 Procedures: 15:08 Suture/Staple removal: Removed 4 sutures, from scalp, site appears well healed, dressed rt with Patient tolerated well. MDM: 15:03 Patient medically screened. rt 15:08 Data reviewed: vital signs, nurses notes. Counseling: I had a detailed discussion with rt the patient and/or guardian regarding: the historical points, exam findings, and any diagnostic results supporting the discharge/admit diagnosis, the need for outpatient follow up. Response to treatment: the patient's symptoms have resolved after treatment. Administered Medications: No medications were administered Disposition Summary: 04/15/23 15:07 Discharge Ordered Location: Home rt Problem: an ongoing problem rt Symptoms: have improved rt Condition: Stable rt Diagnosis - Encounter for removal of sutures rt Followup: rt - With: Private Physician - When: 5 - 6 days - Reason: Discharge Instructions: - Discharge Summary Sheet rt - Suture Removal, Care After rt Forms: - Medication Reconciliation Form rt - Thank You Letter rt - Antibiotic Education rt - Prescription Opioid Use rt Signatures: Jun Tomas MD MD rt Ester Phillip RN RN cm10
[2023-04-15 15:24] VITALS: BP 139/66; TEMP 98.9; O2SAT 100
== END 2023-04-15 15:11 | disposition home or self-care (01) ==
LOC: ER 14:53
DX: Z48.02 Encounter for removal of sutures (principal)
CPT/HCPCS: 99282

== ENCOUNTER 2024-11-11 09:17 | Emergency (ER) | payer SELFPAY ==
[2024-11-11 10:13] LABS: Absolute Basophils 0.1 K/uL (0-0.5); Absolute Eosinophils 0.2 K/uL (0-0.5); Absolute Lymphocytes (CBC) 1.9 K/uL (0.7-4.9); Absolute Monocytes 0.7 K/uL (0.1-1.3); Absolute Neutrophil 5.3 K/uL (1.8-8.0); Hemoglobin 13.9 g/dL (13.6-17.9); Lymphocytes % 22.7 % (15.3-44.8); MCHC 33.8 g/dL (32.0-36.0); MCV 88.7 fL (80-100); MPV 8.1 fL (7.6-11.3); Monocytes % 8.2 % (3.3-12.3); Neutrophils % 65.1 % (41.7-73.7); Nucleated Red Blood Cells % 0.1 % (0-0); Platelets 243 thou/uL (152-406); RBC Red Blood Cell Count 4.62 M/uL (4.33-5.43); Red Cell Distribution Width 14.4 % (12.1-15.2)
[2024-11-11] MEDS ORDERED: FENTANYL CITR 100 MCG/2 ML ONE ×2 (10:26→14:31)
[2024-11-11] MEDS ORDERED: Phenylephrine HCl 10 MG/ML 1 ML VIAL ONE (10:26)
[2024-11-11] MEDS ORDERED: NA CHLORIDE 0.9% 1,000 ML ONE ×2 (10:27→13:39)
[2024-11-11 10:29] LABS: Albumin 3.3 g/dL (3.4-5.0); Albumin/Globulin Ratio 1.2 (1.1-1.8); Anion Gap 6.7 mEq/L (5.0-15.0); Bilirubin Total 0.7 mg/dL (0.2-1.0); Globulin 2.7 g/dL (2.3-3.5); Potassium 3.7 mEq/L (3.5-5.1)
[2024-11-11] MEDS ORDERED: LIDOCAINE 1% 20 ML MDV ONE (11:44)
[2024-11-11] MEDS ORDERED: BUPIVACAINE 0.5% PF 10 ML VIAL ONE (11:44)
[2024-11-11] MEDS ORDERED: NA CHLORIDE 0.9% 500 ML ONE (11:44)
[2024-11-11] MEDS ORDERED: PSEUDOEPHEDRINE 30 MG TAB PO ONE (12:00)
[2024-11-11] MEDS ORDERED: TERBUTALINE SULF 1 MG/1ML SQ ONE (12:00)
[2024-11-11] MEDS ORDERED: NA CHLORIDE 0.9% 100 ML ONE (13:38)
[2024-11-11] MEDS ORDERED: CEFAZOLIN SODIUM 2 GM/VIAL ONE (13:39)
--- NOTE | 2024-11-11 13:40 | ER ---
Nurse's Notes [facility] Name: Lucio Lerma Jr Age: 38 yrs Sex: Male : 1985 Arrival Date: 11/11/2024 Time: 09:17 Bed 2 Private MD: Diagnosis: Priapism, unspecified;Cocaine abuse;Adverse effect of amphetamines Presentation: 11/11 09:43 Chief complaint: Patient states: he has been having pain in his penis since yesterday. ap3 patient denies pain with urination. patient denies any penile discharge. patient denies abdominal pain. patient reports pain to be 6/10 on the pain scale. Coronavirus screen: At this time, the client does not indicate any symptoms associated with coronavirus-19. Ebola Screen: No symptoms or risks identified at this time. Initial Sepsis Screen: Does the patient meet any 2 criteria? No. Patient's initial sepsis screen is negative. Does the patient have a suspected source of infection? No. Patient's initial sepsis screen is negative. Risk Assessment: Do you want to hurt yourself or someone else? Patient reports no desire to harm self or others. Onset of symptoms was November 10, 2024. 09:43 Method Of Arrival: Ambulatory ap3 09:43 Acuity: SVITLANA 4 ap3 10:06 Acuity: SVITLANA 3 ap3 Triage Assessment: 09:45 General: Appears in no apparent distress. Behavior is calm, cooperative, appropriate ap3 for age. Pain: Complains of pain in head of penis and shaft of penis Pain currently is 6 out of 10 on a pain scale. Neuro: Level of Consciousness is awake, alert, obeys commands, Oriented to person, place, time, situation. Cardiovascular: Patient's skin is warm and dry. Respiratory: Airway is patent Respiratory effort is even, unlabored, Respiratory pattern is regular, symmetrical. : Reports pain in penis. Historical: - Allergies: 09:44 No Known Allergies; ap3 - PMHx: 09:44 Anxiety; Bipolar disorder; drug abuse; Seizures (drug induced); ap3 - Immunization history:: Client reports having NOT received the Covid vaccine. - Infectious Disease History:: Denies. - Social history:: Smoking status: Patient reports the use of cigarette tobacco products, smokes one-half pack cigarettes per day, Patient uses alcohol, on a daily basis. Screenin:46 [facility] ED Fall Risk Assessment (Adult) History of falling in the last 3 months, ap3 including since admission No falls in past 3 months (0 pts) Confusion or Disorientation No (0 pts) Intoxicated or Sedated No (0 pts) Impaired Gait No (0 pts) Mobility Assist Device Used No (0 pt) Altered Elimination No (0 pt) Score/Fall Risk Level 0 - 2 = Low Risk Oriented to surroundings, Maintained a safe environment, Educated pt \T\ family on fall prevention, incl call for assistance when getting out of bed, Assessed \T\ reinforced patient's understanding of fall precautions, Hourly rounding (assess needs \T\ fall precautionary measures) done, Used ambulatory aids as needed (educated on \T\ assisted with), Used gait belt as appropriate. Abuse screen: Denies threats or abuse. Nutritional screening: No deficits noted. Tuberculosis screening: No symptoms or risk factors identified. Assessment: 10:36 General: Appears in no apparent distress. uncomfortable, Behavior is calm, cooperative, ld1 appropriate for age. Pain: Complains of pain in pelvis Pain does not radiate. Pain currently is 9 out of 10 on a pain scale. Quality of pain is described as throbbing, Pain began 4 hours ago. Is continuous. Neuro: Level of Consciousness is awake, alert, obeys commands, Oriented to person, place, time, situation, Appropriate for age. Cardiovascular: Capillary refill < 3 seconds Patient's skin is warm and dry. Respiratory: Airway is patent Respiratory effort is even, unlabored. GI: Abdomen is round non-distended. : No signs and/or symptoms were reported regarding the genitourinary system. EENT: No signs and/or symptoms were reported regarding the EENT system. Derm: No signs and/or symptoms reported regarding the dermatologic system. Musculoskeletal: No signs and/or symptoms reported regarding the musculoskeletal system. 12:00 Reassessment: Patient appears in no apparent distress at this time. No changes from ld1 previously documented assessment. Patient states symptoms have not improved. 13:30 Reassessment: Patient appears in no apparent distress at this time. No changes from ld1 previously documented assessment. Patient and/or family updated on plan of care and expected duration. Pain level reassessed. 13:30 Reassessment: ERP at bedside providing care at this time. Drained 60 mL from penis. ld1 Vital Signs: 09:43 BP 126 / 84; Pulse 70; Resp 17; Temp 97.7(O); Pulse Ox 98% on R/A; Weight 113.4 kg; ap3 Height 6 ft. 3 in. ; Pain 6/10; 12:00 BP 126 / 75; Pulse 73; Resp 18; Pulse Ox 100% on R/A; ld1 13:31 BP 118 / 81; Pulse 64; Resp 18; Pulse Ox 100% on R/A; ld1 09:43 Body Mass Index 31.25 (113.40 kg, 190.5 cm) ap3 09:43 Pain Scale: Adult ap3 ED Course: 09:19 Patient arrived in ED. ra3 09:21 Benjamin Webber PA is PHCP. cp 09:21 Benjamin Perkins MD is Attending Physician. cp 09:44 Triage completed. ap3 09:46 Arm band placed on right wrist. ap3 09:47 Patient has correct armband on for positive identification. Bed in low position. Call ap3 light in reach. Adult w/ patient. Provided Education on: call light education. 10:06 Initial lab(s) drawn, by me, sent to lab. Inserted saline lock: 22 gauge in right ap3 antecubital area, using aseptic technique. Blood collected. Flushed with 10 mL NS. 10:35 Rose Rincon, RN is Primary Nurse. ld1 10:36 Door closed. Noise minimized. Pillow given. ld1 10:36 No provider procedures requiring assistance completed. ld1 13:38 initiated a transfer with Linda Larkin from the [facility] Transfer [place]. eb 14:[address] Chuy Garay the urologist sales assistants and salespersons for [facility] with Benjamin Marie for patient transfer consultation. 14:[address] Garay doesn't believe the patient needs to be transferred. eb informed provider who would like transfer center to try [facility]/. 15:01 connected the urologist sales assistants and salespersons for [facility] with Benjamin Marie for patient eb transfer consultation. 15:13 administrative approval given by Linda Larkin/ patient has been accepted to [facility] ED/ Dr. Aki Zamudio has accepted the patient in transfer/ report to be called to [phone]. 16:09 Patient transferred, IV remains in place. ld1 Administered Medications: 10:35 Drug: NS 0.9% IV 1000 ml IV at 1 bolus Per protocol; to be given as a bolus over 60 ld1 minutes Route: IV; Rate: 1 bolus; Site: right antecubital; 13:28 Follow up: Response: No adverse reaction; IV Status: Completed infusion; IV Intake: ld1 1000ml 10:35 Drug: fentaNYL (PF) IVP 25 mcg IVP once Route: IVP; Site: right antecubital; ld1 13:28 Follow up: Response: No adverse reaction ld1 10:35 Drug: fentaNYL (PF) IVP 25 mcg IVP once Route: IVP; Site: right antecubital; ld1 13:28 Follow up: Response: No adverse reaction ld1 12:30 Drug: Pseudoephedrine PO 60 mg PO once Route: PO; ld1 13:28 Follow up: Response: No adverse reaction ld1 13:29 Not Given (unavailable in hospital per pharmacyy): terbutaline0.5 mg Sub-Q once ld1 13:29 Drug: phenylephrine 1 mg Sub-Q Per protocol; 1 mg/ml, place at bedside {Note: ld1 Administered [address]. Perkins.} Route: Sub-Q; Site: abdomen; 13:29 Follow up: Response: No adverse reaction ld1 13:45 Drug: NS 0.9% IV 1000 ml IV at 1000 ml once; to be given as a bolus over 60 minutes ld1 Route: IV; Rate: 1000 ml; Site: right antecubital; 16:08 Follow up: Response: No adverse reaction; IV Status: Completed infusion; IV Intake: ld1 1000ml 13:46 Drug: ceFAZolin IVPB 2 grams IVPB once over 30 mins; (mix in 100 mL NS) Route: IVPB; ld1 Infused Over: 30 mins; Site: right antecubital; 16:08 Follow up: Response: No adverse reaction; IV Status: Completed infusion; IV Intake: ld1 100ml 14:37 Drug: fentaNYL (PF) IVP 50 mcg IVP once Route: IVP; Site: right antecubital; ld1 15:39 Follow up: Response: No adverse reaction ld1 15:39 Drug: Ativan IVP 1 mg IVP once Route: IVP; Site: right antecubital; ld1 16:08 Follow up: Response: No adverse reaction ld1 Medication: 10:36 VIS not applicable for this client. ld1 Intake: 13:28 IV: 1000ml; Total: 1000ml. ld1 16:08 IV: 100ml; Total: 1100ml. ld1 16:08 IV: 1000ml; Total: 2100ml. ld1 Outcome: 13:40 ER care complete, transfer ordered by MD. cp 16:09 Transferred by ground EMS ld1 16:09 Condition: stable 16:09 Instructed on the need for transfer, 16:09 Patient left the ED. ld1 Signatures: Benjamin Webber PA PA cp Melody Pearl RN RN ap3 Keira Leroy Lauren RN RN ld1 Mena Solorzano ra3 Corrections: (The following items were deleted from the chart) 16:09 16:09 Condition: stable ld1 ld1 16:09 16:09 Discharged to home ambulatory, ld1 ld1 16:09 16:09 Discharge instructions given to patient, Instructed on discharge instructions, ld1 follow up and referral plans. medication usage, Demonstrated understanding of instructions, follow-up care, wound care, Prescriptions given X 1, ld1
--- NOTE | 2024-11-11 13:40 | EDPHYS ---
Physician Documentation [facility] Name: Lucio Lerma Jr Age: 38 yrs Sex: Male : 1985 Arrival Date: 11/11/2024 Time: 09:17 Bed 2 Private MD: Benjamin Ching HPI: 11/11 09:55 This 38 yrs old Black Male presents to ER via Ambulatory with complaints of Groin Pain. cp 09:55 The patient presents with penile erection. Onset: The symptoms/episode began/occurred cp yesterday, upon awakening. Associated signs and symptoms: Pertinent negatives: abdominal pain, fever, hematuria, penile discharge. 09:55 Severity of symptoms: in the emergency department the symptoms are unchanged, despite cp home interventions. 09:55 Patient denies taking any illegal drugs, prescription medications and/or erectile cp dysfunction medications. Historical: - Allergies: 09:44 No Known Allergies; ap3 - PMHx: 09:44 Anxiety; Bipolar disorder; drug abuse; Seizures (drug induced); ap3 - Immunization history:: Client reports having NOT received the Covid vaccine. - Infectious Disease History:: Denies. - Social history:: Smoking status: Patient reports the use of cigarette tobacco products, smokes one-half pack cigarettes per day, Patient uses alcohol, on a daily basis. ROS: 10:00 : Positive for difficulty urinating, penile pain, penile erection, cp 10:00 Eyes: Negative for injury, pain, redness, and discharge, cp 10:00 Constitutional: Negative for body aches, chills, fever, poor PO intake, 10:00 Cardiovascular: Negative for chest pain, palpitations, 10:00 Respiratory: Negative for cough, shortness of breath, wheezing, 10:00 Abdomen/GI: Negative for abdominal pain, nausea, vomiting, and diarrhea, 10:00 Back: Negative for pain at rest, pain with movement, 10:00 Neuro: Negative for altered mental status, headache, numbness, weakness, 10:00 All other systems are negative, cp Exam: 10:05 Constitutional: The patient appears in no acute distress, alert, awake, cp non-diaphoretic, non-toxic, well developed, well nourished, uncomfortable, 10:05 Head/Face: Normocephalic, atraumatic. cp 10:05 Eyes: Periorbital structures: appear normal, Conjunctiva: normal, no exudate, no cp injection, Sclera: no appreciated abnormality, Lids and lashes: appear normal, bilaterally, 10:05 ENT: External ear(s): are unremarkable, Nose: is normal, Mouth: Lips: moist, Oral cp mucosa: pink and intact, moist, Posterior pharynx: Airway: no evidence of obstruction, patent, 10:05 Neck: ROM/movement: is normal, is supple, without pain, no range of motions limitations, 10:05 Chest/axilla: Inspection: normal, 10:05 Cardiovascular: Rate: normal, Rhythm: regular, 10:05 Respiratory: the patient does not display signs of respiratory distress, Respirations: normal, no use of accessory muscles, no retractions, labored breathing, is not present, Breath sounds: are clear throughout, no decreased breath sounds, no stridor, no wheezing, 10:05 Abdomen/GI: Inspection: abdomen appears normal, Palpation: abdomen is soft and non-tender, in all quadrants, 10:05 : Male external genitalia: Circumcision noted. erected penis, 10:05 Neuro: Orientation: to person, place \T\ time. Mentation: is normal, Vital Signs: 09:43 BP 126 / 84; Pulse 70; Resp 17; Temp 97.7(O); Pulse Ox 98% on R/A; Weight 113.4 kg; ap3 Height 6 ft. 3 in. ; Pain 6/10; 12:00 BP 126 / 75; Pulse 73; Resp 18; Pulse Ox 100% on R/A; ld1 13:31 BP 118 / 81; Pulse 64; Resp 18; Pulse Ox 100% on R/A; ld1 09:43 Body Mass Index 31.25 (113.40 kg, 190.5 cm) ap3 09:43 Pain Scale: Adult ap3 MDM: 09:36 Medical Screening Exam initiated kimmie 13:40 Data reviewed: vital signs, nurses notes, lab test result(s), and as a result, I will cp transfer patient. 13:40 Differential diagnosis: UTI, prostatitis, urethritis, priapism, illegal drug use. I cp considered the following discharge prescriptions or medication management in the emergency department Medications were administered in the Emergency Department. See MAR. Counseling: I had a detailed discussion with the patient and/or guardian regarding the historical points, exam findings, and any diagnostic results supporting the discharge/admit diagnosis, the need to transfer to another facility, [facility] does not immediately have the required specialist. Response to treatment: the patient's symptoms have mildly improved after treatment. 14:34 ED course: consult with urology DR Garay \[facility] in [facility], who recommends cp outpatient f/u and no transfer at this time. 15:07 ED course: consult with urology, DR Ryan Calloway at [facility], who will accept ER to ER transfer. 11/11 09:50 Order name: CBC with Diff; Complete Time: 11:23 cp 11/11 09:50 Order name: CMP; Complete Time: 11:23 cp 11/11 11:23 Interpretation: Normal except: CL 110; GLUC 117; AST 42; CA 8.4; TP 6.0; ALB 3.3. cp 11/11 09:50 Order name: Lipase; Complete Time: 11:23 cp 11/11 09:50 Order name: Urinalysis w/ reflexes; Complete Time: 15:00 cp 11/11 09:50 Order name: UDS; Complete Time: 15:10 cp 11/11 13:17 Order name: ABG ld1 11/11 09:50 Order name: IV Saline Lock; Complete Time: 10:06 cp 11/11 09:50 Order name: Labs collected and sent; Complete Time: 10:06 cp Administered Medications: 10:35 Drug: NS 0.9% IV 1000 ml IV at 1 bolus Per protocol; to be given as a bolus over 60 ld1 minutes Route: IV; Rate: 1 bolus; Site: right antecubital; 13:28 Follow up: Response: No adverse reaction; IV Status: Completed infusion; IV Intake: ld1 1000ml 10:35 Drug: fentaNYL (PF) IVP 25 mcg IVP once Route: IVP; Site: right antecubital; ld1 13:28 Follow up: Response: No adverse reaction ld1 10:35 Drug: fentaNYL (PF) IVP 25 mcg IVP once Route: IVP; Site: right antecubital; ld1 13:28 Follow up: Response: No adverse reaction ld1 12:30 Drug: Pseudoephedrine PO 60 mg PO once Route: PO; ld1 13:28 Follow up: Response: No adverse reaction ld1 13:29 Not Given (unavailable in hospital per pharmacyy): terbutaline0.5 mg Sub-Q once ld1 13:29 Drug: phenylephrine 1 mg Sub-Q Per protocol; 1 mg/ml, place at bedside {Note: ld1 Administered by Dr. Perkins.} Route: Sub-Q; Site: abdomen; 13:29 Follow up: Response: No adverse reaction ld1 13:45 Drug: NS 0.9% IV 1000 ml IV at 1000 ml once; to be given as a bolus over 60 minutes ld1 Route: IV; Rate: 1000 ml; Site: right antecubital; 16:08 Follow up: Response: No adverse reaction; IV Status: Completed infusion; IV Intake: ld1 1000ml 13:46 Drug: ceFAZolin IVPB 2 grams IVPB once over 30 mins; (mix in 100 mL NS) Route: IVPB; ld1 Infused Over: 30 mins; Site: right antecubital; 16:08 Follow up: Response: No adverse reaction; IV Status: Completed infusion; IV Intake: ld1 100ml 14:37 Drug: fentaNYL (PF) IVP 50 mcg IVP once Route: IVP; Site: right antecubital; ld1 15:39 Follow up: Response: No adverse reaction ld1 15:39 Drug: Ativan IVP 1 mg IVP once Route: IVP; Site: right antecubital; ld1 16:08 Follow up: Response: No adverse reaction ld1 Disposition Summary: 11/11/24 13:40 Transfer Ordered Notes: Transfer Location: [facility] cp Reason: Higher level of care cp Condition: Stable cp Problem: new cp Symptoms: have improved cp Accepting Physician: DR Ryan Calloway(11/11/24 16:09) ld1 Diagnosis - Priapism, unspecified cp - Cocaine abuse cp - Adverse effect of amphetamines cp Forms: - Medication Reconciliation Form cp - SBAR form cp Addendum: 11/15/2024 07:25 Co-signature as Attending Physician, Benjamin Perkins MD I agree with the assessment and c pedroza plan of care. Signatures: Dispatcher [employer] EDBenjamin Elena MD MD cha Page, Corey, PA PA Melody Harman RN RN ap3 Rose Rincon RN RN ld1 Corrections: (The following items were deleted from the chart) 11/11 09:51 09:51 CBC+H.LAB.BRZ ordered. EDMS EDMS 09:51 09:51 COMPREHENSIVE METABOLIC PANEL+C.LAB.BRZ ordered. EDMS EDMS 09:51 09:51 LIPASE+C.LAB.BRZ ordered. EDMS EDMS 09:51 09:51 Urinalysis+U.LAB.BRZ ordered. EDMS EDMS 09:51 09:51 URINE DRUG SCREEN+UC.LAB.BRZ ordered. EDMS EDMS 13:18 13:18 Arterial Blood Gas+RC.LAB.BRZ ordered. EDMS EDMS 14:46 14:34 ED course: consult with urology \T[facility] who recommends outpatient cp f/u and no transfer at this time. cp 15:06 13:40 Doctor cp cp 15:14 15:06 DR Ryan Calloway cp cp 16:09 15:14 DR Ryan Calloway cp ld1 23:32 09:55 Onset: The symptoms/episode began/occurred yesterday, cp cp 23:42 10:00 All other systems are negative, cp cp
[2024-11-11 14:57] LABS: Specific Gravity 1.018 (1.005-1.030); Sqamous Epithelial None Seen /HPF (None Seen); Urine Bacteria None Seen /HPF (<20); Urine Bilirubin NEGATIVE (Negative); Urine Blood Negative (Negative); Urine Clarity Clear (Clear); Urine Color Light-Yellow (Yellow); Urine Culture Reflex Order NOT NEEDED; Urine Glucose NEGATIVE (Negative); Urine Ketones NEGATIVE (Negative); Urine Microscopic Reflex YN ORDER UMIC; Urine Mucus Slight /HPF (None Seen); Urine Nitrite NEGATIVE (Negative); Urine Protein NEGATIVE (Negative); Urine RBC <5 /HPF (None Seen); Urine Urobilinogen Normal (Normal); Urine WBC <5 /HPF (<5); Urine pH 5.5 (5.0-7.0)
[2024-11-11 15:06] LABS: Barbiturates NEGATIVE (NEGATIVE); Benzodiazepines NEGATIVE (NEGATIVE); Cocaine POSITIVE (NEGATIVE); METHAMPHETAM POSITIVE (NEGATIVE); Methadone NEGATIVE (NEGATIVE); Opiates NEGATIVE (NEGATIVE); Phencyclidine NEGATIVE (NEGATIVE); THC Cannibis NEGATIVE (NEGATIVE)
[2024-11-11] MEDS ORDERED: NICOTINE 21 MG/PAT TD ONE (15:24)
[2024-11-11] MEDS ORDERED: LORazepam 2 MG/ML VIAL ONE (15:24)
[2024-11-11 16:14] VITALS: TEMP 97.7
[2024-11-11 16:15] VITALS: O2SAT 100
[2024-11-11 16:15] LABS: Arterial Blood Carboxyhemoglob 1.9 % (0-1.5); Blood Gas THB 17.9 g/dl (12-18); Blood O2 Saturation 8.3 % (92-98.5)
[2024-11-11 16:16] VITALS: BP 118/81
== END 2024-11-11 16:09 | disposition short-term general hospital (02) ==
LOC: ER 09:17
DX: N48.30 Priapism, unspecified (principal); T43.625A Adverse effect of amphetamines, initial encounter; F14.10 Cocaine abuse, uncomplicated; F31.9 Bipolar disorder, unspecified; F41.9 Anxiety disorder, unspecified; F17.210 Nicotine dependence, cigarettes, uncomplicated
CPT/HCPCS: 36415; 36600; 80053; 80307; 81001; 82805; 83690; 85025; 96361; 96365; 96366; 96372; 96375; 99285; J2003; J2371; J3010; J3105; J7030; J7040